=== PATIENT | male | born 1945 | race Caucasian/White ===

== ENCOUNTER 2018-05-23 21:25 | Inpatient (IN) | payer OTHER, MEDICARE ==
[~2018-05-23] VITALS: Ht 177.8 cm; Wt 95.0 kg
--- NOTE | 2018-05-23 21:36 | PHYS DOC ---
Adult General HPI HPI Patient is a 73 year old male who presents with cough and fever. He presents to the emergency department via EMS after he had an episode of coughing, loss of consciousness, subsequent seizure-like activity that was witnessed by his son , then vomiting. When he woke up he was slow to wake up and EMS noticed that he was febrile. He states that he has had a cough for the last 3 weeks which started to have yellow sputum over the last couple of days. He also has a history of prostatitis and states that he has had urinary frequency and dysuria that is worsening as well as a dull of pubic ache. Severe MRSA department alert and oriented 3, GCS 15, with no real pain or complaint, albeit stoic. He has a cervical collar in place that was cleared by me via Nexus criteria. Review of Systems Review of Systems All other systems were reviewed and found to be within normal limits, except as documented in this note. Family History Family History non contributory Current Medications Current Medications Current Medications Medications (Trade) Dose Ordered Sig/Harleen Start Time Stop Time Status Last Admin Dose Admin Acetaminophen (Tylenol) 1,000 mg 1X ONCE 05/23/18 22:00 05/23/18 22:01 DC 05/23/18 22:00 1,000 MG Piperacillin Sod/ Tazobactam Sod 3.375 gm/Sodium Chloride 50 ml @ 100 mls/hr 1X ONCE 05/23/18 21:45 05/23/18 22:14 DC 05/23/18 22:15 100 MLS/HR Sodium Chloride 1,000 ml @ 1,000 mls/hr 1X ONCE 05/23/18 22:15 05/23/18 23:14 DC 05/23/18 22:08 1,000 MLS/HR Allergies Allergies Allergies Coded Allergies Type Severity Reaction Last Updated Verified ciprofloxacin Allergy Unknown 05/23/18 Yes Physical Exam Physical Exam GENERAL: Awake, alert, nontoxic, no acute distress HEAD/NECK/EYES: Normocephalic,PERRL , trachea midline, no JVD, C-spine immobilized initially, no C-spine tenderness, no step-off, full range of motion without any pain or issue, supple ENT Airway patent, mucous membranes moist RESP: Nontachypneic, no respiratory distress, normal breath sounds bilaterally CV: Tachycardic without murmur ABD/GI: Soft, non-tender, no guarding, no rebound, no palpable pulsatile mass BACK: Inspection NL EXT: Neurovascularly intact, no deformities SKIN: Warm, dry NEURO: Oriented X3, normal speech, no motor deficits, no sensory deficits, CN II - XII intact PSYCH: Cooperative, appropriate affect Current Patient Data Vital Signs Vital Signs Date Time Temp Pulse Resp B/P (MAP) Pulse Ox O2 Delivery O2 Flow Rate FiO2 05/23/18 21:29 99.3 102 17 168/78 (108) Room Air 99.3 Lab Values Laboratory Tests Test 05/23/18 21:40 05/23/18 22:27 White Blood Count 14.6 x10^3/uL (4.0-11.0) H Red Blood Count 4.10 x10^6/uL (4.30-5.70) L Hemoglobin 13.3 g/dL (13.0-17.5) Hematocrit 38.2 % (39.0-53.0) L Mean Corpuscular Volume 93 fL (79-100) Mean Corpuscular Hemoglobin 33 pg (25-35) Mean Corpuscular Hemoglobin Concent 35 g/dL (31-37) Red Cell Distribution Width 13.9 % (11.5-14.5) Platelet Count 238 x10^3/uL (140-400) Neutrophils (%) (Auto) 87 % (31-73) H Lymphocytes (%) (Auto) 5 % (24-48) L Monocytes (%) (Auto) 8 % (0-9) Eosinophils (%) (Auto) 0 % (0-3) Basophils (%) (Auto) 0 % (0-3) Neutrophils # (Auto) 12.7 x10^3uL (1.8-7.7) H Lymphocytes # (Auto) 0.7 x10^3/uL (1.0-4.8) L Monocytes # (Auto) 1.2 x10^3/uL (0.0-1.1) H Eosinophils # (Auto) 0.0 x10^3/uL (0.0-0.7) Basophils # (Auto) 0.0 x10^3/uL (0.0-0.2) Platelet Estimate Pending Sodium Level 129 mmol/L (136-145) L Potassium Level 3.8 mmol/L (3.5-5.1) Chloride Level 98 mmol/L (98-107) Carbon Dioxide Level 21 mmol/L (21-32) Anion Gap 10 (6-14) Blood Urea Nitrogen 16 mg/dL (8-26) Creatinine 1.1 mg/dL (0.7-1.3) Estimated GFR (Cockcroft-Gault) 65.8 Glucose Level 146 mg/dL (70-99) H Lactic Acid Level 1.2 mmol/L (0.4-2.0) Calcium Level 8.5 mg/dL (8.5-10.1) Total Bilirubin 1.2 mg/dL (0.2-1.0) H Direct Bilirubin 0.4 mg/dL (0.0-0.2) H Aspartate Amino Transferase (AST) 28 U/L (15-37) Alanine Aminotransferase (ALT) 36 U/L (16-63) Alkaline Phosphatase 77 U/L (46-116) Total Protein 7.4 g/dL (6.4-8.2) Albumin 3.4 g/dL (3.4-5.0) Procalcitonin 0.16 ng/mL (0.00-0.10) H Urine Collection Type Unknown Urine Color Colette Urine Clarity Cloudy Urine pH 5.5 Urine Specific [place] 1.025 Urine Protein 100 mg/dL (NEG-TRACE) Urine Glucose (UA) Negative mg/dL (NEG) Urine Ketones (Stick) >=80 mg/dL (NEG) Urine Blood Moderate (NEG) Urine Nitrite Positive (NEG) Urine Bilirubin Negative (NEG) Urine Urobilinogen Dipstick 1.0 mg/dL (0.2 mg/dL) Urine Leukocyte Esterase Large (NEG) Urine RBC 3-5 /HPF (0-2) Urine WBC Tntc /HPF (0-4) Urine Squamous Epithelial Cells None /LPF Urine Bacteria Many /HPF (0-FEW) Urine Mucus Marked /LPF Laboratory Tests 05/23/18 21:40 Laboratory Tests 05/23/18 21:40 EKG EKG [] Radiology/Procedures Radiology/Procedures AP chest x-ray interpreted by me reveals bilateral atelectasis but no confluent infiltrates.[] Impressions: Urinary tract infection, sepsis, aspiration pneumonitis, syncope versus seizure Course & Med Decision Making Course & Med Decision Making Pertinent Labs and Imaging studies reviewed. (See chart for details) []Differential includes but not limited to: Sepsis, aspiration pneumonitis, aspiration pneumonia, prostatitis, urinary tract infection, pyelonephritis, metabolic abnormality, anemia, normocytic., Seizure, syncope, dysrhythmia, structural heart disease Dragon Disclaimer Dragon Disclaimer This electronic medical record was generated, in whole or in part, using a voice recognition dictation system. Departure Departure Impression: Primary Impression: Sepsis Additional Impressions: Syncope Seizure-like activity Aspiration pneumonitis Disposition: ADMITTED INPATIENT Admitting Physician: Other (Termulo) Condition: STABLE Problem Qualifiers MAXIMO MARIE DO May 23, 2018 21:36
[2018-05-23] MEDS ORDERED: PIPERACILLIN/TAZOBACTAM 3.375 GM in IV NORMAL SALINE 50ML 50 ML IV ONE (21:45)
[2018-05-23] MEDS ORDERED: ACETAMINOPHEN 500 MG TABLET PO ONE (22:00)
[2018-05-23 22:08] LABS: ALBUMIN 3.4 g/dL (3.4-5.0); DIRECT BILIRUBIN 0.4 mg/dL (0.0-0.2); TOTAL BILIRUBIN 1.2 mg/dL (0.2-1.0); TOTAL PROTEIN 7.4 g/dL (6.4-8.2)
[2018-05-23] MEDS ORDERED: IV NORMAL SALINE 1000ML BAG 1,000 ML IV ONE (22:15)
[2018-05-23 22:35] LABS: BILIRUBIN,URINE NEGATIVE (NEG); CLARITY,URINE CLOUDY; COLOR,URINE AMBER; NITRITE,URINE POSITIVE (NEG); PH,URINE 5.5; PROTEIN,URINE 100 mg/dL (NEG-TRACE)
--- NOTE | 2018-05-23 22:36 | RAD ---
PQRS Compliance statement: One or more of the following individualized dose reduction techniques were utilized for this examination: 1. Automated exposure control. 2. Adjustment of the mA and/or kV according to patient size. 3. Use of iterative reconstruction technique. Indication:weakness, syncope, fall, hit head, no priors TECHNIQUE: CT head without IV contrast COMPARISON:None FINDINGS: No pathologic extra-axial or intra-axial fluid collection. Mild diffuse cerebral atrophy. The ventricles and basal cisterns are within normal limits. No acute intracranial bleed. No focal loss of haskins-white differentiation. Orbits within normal limits. No acute calvarial fractures. Visualized paranasal sinuses and mastoid air cells are clear. IMPRESSION: No acute intracranial process. Electronically signed by: Flavio Haynes DO (05/23/2018 10:33 PM) [facility]
[2018-05-23 22:41] LABS: BACTERIA,URINE MANY /HPF (0-FEW); WBC,URINE TNTC /HPF (0-4)
[2018-05-23] MEDS ORDERED: ONDANSETRON PF 4 MG/2 ML VIAL. IV PRN (23:15)
[2018-05-23 23:29] LABS: BASO % 0 % (0-3); EOS % 0 % (0-3); HEMATOCRIT 38.2 % (39.0-53.0); HEMOGLOBIN 13.3 g/dL (13.0-17.5); LYMPH # 0.7 x10^3/uL (1.0-4.8); LYMPH % 5 % (24-48); MEAN CORPUSCULAR HEMOGLOBIN 33 pg (25-35); MEAN CORPUSCULAR HGB CONC 35 g/dL (31-37); MEAN CORPUSCULAR VOLUME 93 fL (79-100); MONO # 1.2 x10^3/uL (0.0-1.1); MONO % 8 % (0-9); NEUT # 12.7 x10^3uL (1.8-7.7); NEUT % 87 % (31-73); PLATELET COUNT 238 x10^3/uL (140-400); RED CELL DISTRIBUTION WIDTH 13.9 % (11.5-14.5); WHITE BLOOD COUNT 14.6 x10^3/uL (4.0-11.0)
--- NOTE | 2018-05-23 23:30 | RAD ---
Indication:sepsis cough aspiration pneumonitis TECHNIQUE:Portable AP chest X-ray COMPARISON:None FINDINGS: Heart is normal in size. Calcified granuloma is seen in the right midlung zone. Minimal bibasilar linear opacities likely subsegmental atelectasis. No focal consolidation. No pneumothorax or pleural effusion. Elevated right hemidiaphragm, nonspecific. Visualized bony thorax within normal limits. IMPRESSION: Mild bibasilar patchy opacities most likely subsegmental atelectasis. Electronically signed by: Flavio Haynes DO (05/23/2018 11:26 PM) [facility]
[2018-05-23 23:32] LABS: CALCIUM 8.5 mg/dL (8.5-10.1); CREATININE 1.1 mg/dL (0.7-1.3); GFR 65.8; POTASSIUM 3.8 mmol/L (3.5-5.1)
[2018-05-24] VITALS (8 sets, daily range): BP systolic 106–143; BP diastolic 48–73
[2018-05-24] MEDS: IV NORMAL SALINE 1000ML BAG 1,000 ML IV SCH ×2 (00:41→10:30)
[2018-05-24] MEDS ORDERED: DIPH25CA58 PO (01:31)
[2018-05-24] MEDS ORDERED: ASPI81TA59 PO (01:31)
[2018-05-24] MEDS ORDERED: LORA10TA3 PO (01:31)
[2018-05-24] MEDS ORDERED: TAMS0.4C97 PO (01:31)
[2018-05-24] MEDS ORDERED: DOCU-109 PO (01:31)
[2018-05-24 04:59] LABS: BASO % 0 % (0-3); EOS % 0 % (0-3); HEMATOCRIT 37.8 % (39.0-53.0); HEMOGLOBIN 13.2 g/dL (13.0-17.5); LYMPH # 1.1 x10^3/uL (1.0-4.8); LYMPH % 8 % (24-48); MEAN CORPUSCULAR HEMOGLOBIN 33 pg (25-35); MEAN CORPUSCULAR HGB CONC 35 g/dL (31-37); MEAN CORPUSCULAR VOLUME 95 fL (79-100); MONO % 7 % (0-9); NEUT # 11.8 x10^3uL (1.8-7.7); NEUT % 85 % (31-73); PLATELET COUNT 209 x10^3/uL (140-400); RED BLOOD COUNT 3.99 x10^6/uL (4.30-5.70); RED CELL DISTRIBUTION WIDTH 14.3 % (11.5-14.5)
[2018-05-24 05:07] LABS: % LYMPHS 10 % (24-48); % MONOS 12 % (0-10); % SEGS 78 % (35-66)
[2018-05-24 05:08] LABS: PLT ESTIMATE ADEQUATE (ADEQUATE)
[2018-05-24 05:21] LABS: CALCIUM 8.4 mg/dL (8.5-10.1); CREATININE 1.3 mg/dL (0.7-1.3); GFR 54.3; POTASSIUM 3.8 mmol/L (3.5-5.1)
[2018-05-24] MEDS: IPRATRPIUM/ALBUTEROL 0.5/2.5MG 3 ML NEBU. NEB SCH ×4 (07:31→19:40)
[2018-05-24] MEDS ORDERED: guaiFENesin DM 200MG/20MG 10 ML SYRUP PO PRN (09:00)
[2018-05-24] MEDS ORDERED: ACETAMINOPHEN/CODEINE 300/30MG TABLET. PO PRN (09:00)
[2018-05-24] MEDS ORDERED: ONDANSETRON PF 4 MG/2 ML VIAL. IV PRN (09:15)
[2018-05-24] MEDS: CETIRIZINE HCL 10 MG TABLET. PO SCH (10:31)
[2018-05-24] MEDS: TAMSULOSIN 0.4 MG CAP.ER.24H. PO SCH (10:31)
[2018-05-24] MEDS: BENZONATATE 100 MG CAPSULE. PO SCH ×3 (10:31→21:00)
[2018-05-24] MEDS: diphenhydrAMINE HCL 25 MG CAPSULE PO SCH (10:31)
[2018-05-24] MEDS: DOCUSATE SODIUM 100 MG CAPSULE. PO SCH ×2 (10:32→21:01)
--- NOTE | 2018-05-24 10:42 | PDOC1 ---
History and Physical Date of Admission Date of Admission DATE: 05/24/18 TIME: 10:36 Identification/Chief Complaint Chief Complaint fall, LOC Source Source: Caregiver, Chart review, Patient History of Present Illness History of Present Illness 73-year-old very pleasant male, lives at home with son, good ADLs and IADLs, does not need any assistive device for ambulation, was preparing noodles for dinner last night, he suddenly syncopized. NO prodrome, no CP< no tunnel vision, no identifiable precipitating factor,. NO SZ like movement or bowel or bladder incontinence, He thought he may might have been out for 5 minutes. Next thing he sees was his son waking him up and EMS arriving. No reports of arrhythmia by EMT. Happened in the past before, some 6 years ago? When they lived in [place], went [facility], saw exploration driller, stress test done maybe an echo. Seems okay and no follow-up needed. He also actually has some incidental UTI. Admits to some dysuria, pelvic pressure. Will try Pyridium. History of prostatitis and BPH, with very bad side effects to Cipro but good with bactrim/sulfa so far. He is asking for sulfa. He does have history of LBBB. Unknown exploration driller at [facility] in the past. We'll admit, have urology, start. abx for the UTI, consult cardiology re syncope. We' ll hook to telemetry. Current IVF to consume. Rest of the labs chest x-ray CT head are all unremarkable. Past Medical History Cardiovascular: HTN, Syncope Renal/: Benign prostatic enlarg., Other (prostatitis) Past Surgical History Past Surgical History: No pertinent history Family History Family History: No Significant Social History Smoke: No ALCOHOL: none Drugs: None Current Problem List Problem List Problems Medical Problems: (1) Aspiration pneumonitis Status: Acute (2) Seizure-like activity Status: Acute (3) Sepsis Status: Acute Current Medications Current Medications Current Medications Piperacillin Sod/ Tazobactam Sod 3.375 gm/Sodium Chloride 50 ml @ 100 mls/hr 1X ONCE IV Last administered on 05/23/18at 22:15; Start 05/23/18 at 21:45; Stop 05/23/18 at 22:14; Status DC Acetaminophen (Tylenol) 1,000 mg 1X ONCE PO Last administered on 05/23/18at 22: 00; Start 05/23/18 at 22:00; Stop 05/23/18 at 22:01; Status DC Sodium Chloride 1,000 ml @ 1,000 mls/hr 1X ONCE IV Last administered on at 22:08; Start 05/23/18 at 22:15; Stop 05/23/18 at 23:14; Status DC Ondansetron HCl (Zofran) 4 mg PRN Q8HRS PRN IV NAUSEA/VOMITING; Start 05/23/18 at 23:15; Stop 05/24/18 at 09:01; Status DC Sodium Chloride 1,000 ml @ 100 mls/hr Q10H IV Last administered on 05/24/18at 10:30; Start 05/23/18 at 23:15; Stop 05/24/18 at 23:14 Albuterol/ Ipratropium (Duoneb) 3 ml RTQID NEB Last administered on 05/24/18at 07:31; Start 05/24/18 at 08:00; Stop 05/25/18 at 07:59 Ondansetron HCl (Zofran) 4 mg PRN Q6HRS PRN IV NAUSEA/VOMITING; Start 05/24/18 at 09:15 Acetaminophen (Tylenol) 500 mg PRN Q6HRS PRN PO MILD PAIN / TEMP; Start at 09:00 Acetaminophen/ Codeine Phosphate (Tylenol #3) 1 tab PRN Q6HRS PRN PO MODERATE - SEVERE PAIN; Start 05/24/18 at 09:00 Benzonatate (Tessalon Perle) 100 mg [id number] PO Last administered on 05/24/18at 10 :31; Start 05/24/18 at 09:30 Guaifenesin (Robitussin Dm) 10 ml PRN Q6HRS PRN PO COUGH; Start 05/24/18 at 09: 00 Aspirin (Children'S Aspirin) 81 mg DAILY PO ; Start 05/25/18 at 09:30 Diphenhydramine HCl (Benadryl) 25 mg DAILY PO Last administered on 05/24/18at 10 :31; Start 05/24/18 at 09:30 Docusate Sodium (Colace) 100 mg BID PO Last administered on 05/24/18at 10:32; Start 05/24/18 at 09:30 Tamsulosin HCl (Flomax) 0.4 mg DAILY PO Last administered on 05/24/18at 10:31; Start 05/24/18 at 09:30 Cetirizine HCl (ZyrTEC) 10 mg DAILY PO Last administered on 05/24/18at 10:31; Start 05/24/18 at 09:30 Active Scripts Active Reported Benadryl (Diphenhydramine Hcl) 25 Mg Capsule 25 Mg PO DAILY Loratadine 10 Mg Tablet 1 Tab PO DAILY Colace (Docusate Sodium) 100 Mg Capsule 1 Cap PO BID Flomax (Tamsulosin Hcl) 0.4 Mg Cap.er.24h 1 Cap PO DAILY Children's Aspirin (Aspirin) 81 Mg Tab.chew 81 Mg PO DAILY Allergies Allergies: Coded Allergies: ciprofloxacin (Verified Allergy, Unknown, 05/23/18) ROS Review of System as per history of present illness, the rest of ROS 14 point negative Physical Exam General: Alert, Oriented X3, Cooperative, No acute distress HEENT: Atraumatic, PERRLA, EOMI Lungs: Clear to auscultation, Normal air movement Heart: S1S2, RRR, no thrills, no rubs, no gallops, no murmurs Cardiovascular: S1, S2 Abdomen: Soft, Other (tenderness/pelvic pressure on deep palpation no guarding) Male Genitals Exam: normal genitalia, normal prostate Rectal Exam: not examined PELVIC: Nml ext genitalia Extremities: No clubbing, No cyanosis, No edema, Normal pulses, No tenderness/ swelling Skin: No rashes, No breakdown, No significant lesion Neuro: Normal gait, Normal speech, Strength at 5/5 X4 ext, Normal tone, Sensation intact, Cranial nerves 3-12 NL, Reflexes 2+ Psych/Mental Status: Mental status NL, Mood NL Vitals Vitals Vital Signs Date Time Temp Pulse Resp B/P (MAP) Pulse Ox O2 Delivery O2 Flow Rate FiO2 05/24/18 07:32 93 Room Air 05/24/18 07:00 99.4 93 16 106/48 (67) 99.4 Labs Labs Laboratory Tests Test 05/23/18 21:40 05/23/18 22:27 05/24/18 03:25 White Blood Count 14.6 x10^3/uL (4.0-11.0) 14.0 x10^3/uL (4.0-11.0) Red Blood Count 4.10 x10^6/uL (4.30-5.70) 3.99 x10^6/uL (4.30-5.70) Hemoglobin 13.3 g/dL (13.0-17.5) 13.2 g/dL (13.0-17.5) Hematocrit 38.2 % (39.0-53.0) 37.8 % (39.0-53.0) Mean Corpuscular Volume 93 fL (79-100) 95 fL (79-100) Mean Corpuscular Hemoglobin 33 pg (25-35) 33 pg (25-35) Mean Corpuscular Hemoglobin Concent 35 g/dL (31-37) 35 g/dL (31-37) Red Cell Distribution Width 13.9 % (11.5-14.5) 14.3 % (11.5-14.5) Platelet Count 238 x10^3/uL (140-400) 209 x10^3/uL (140-400) Neutrophils (%) (Auto) 87 % (31-73) 85 % (31-73) Lymphocytes (%) (Auto) 5 % (24-48) 8 % (24-48) Monocytes (%) (Auto) 8 % (0-9) 7 % (0-9) Eosinophils (%) (Auto) 0 % (0-3) 0 % (0-3) Basophils (%) (Auto) 0 % (0-3) 0 % (0-3) Neutrophils # (Auto) 12.7 x10^3uL (1.8-7.7) 11.8 x10^3uL (1.8-7.7) Lymphocytes # (Auto) 0.7 x10^3/uL (1.0-4.8) 1.1 x10^3/uL (1.0-4.8) Monocytes # (Auto) 1.2 x10^3/uL (0.0-1.1) 1.0 x10^3/uL (0.0-1.1) Eosinophils # (Auto) 0.0 x10^3/uL (0.0-0.7) 0.0 x10^3/uL (0.0-0.7) Basophils # (Auto) 0.0 x10^3/uL (0.0-0.2) 0.0 x10^3/uL (0.0-0.2) Segmented Neutrophils % 78 % (35-66) Lymphocytes % 10 % (24-48) Monocytes % 12 % (0-10) Platelet Estimate Adequate (ADEQUATE) Sodium Level 129 mmol/L (136-145) 137 mmol/L (136-145) Potassium Level 3.8 mmol/L (3.5-5.1) 3.8 mmol/L (3.5-5.1) Chloride Level 98 mmol/L (98-107) 103 mmol/L (98-107) Carbon Dioxide Level 21 mmol/L (21-32) 23 mmol/L (21-32) Anion Gap 10 (6-14) 11 (6-14) Blood Urea Nitrogen 16 mg/dL (8-26) 14 mg/dL (8-26) Creatinine 1.1 mg/dL (0.7-1.3) 1.3 mg/dL (0.7-1.3) Estimated GFR (Cockcroft-Gault) 65.8 54.3 Glucose Level 146 mg/dL (70-99) 148 mg/dL (70-99) Lactic Acid Level 1.2 mmol/L (0.4-2.0) Calcium Level 8.5 mg/dL (8.5-10.1) 8.4 mg/dL (8.5-10.1) Total Bilirubin 1.2 mg/dL (0.2-1.0) Direct Bilirubin 0.4 mg/dL (0.0-0.2) Aspartate Amino Transf (AST/SGOT) 28 U/L (15-37) Alanine Aminotransferase (ALT/SGPT) 36 U/L (16-63) Alkaline Phosphatase 77 U/L (46-116) Total Protein 7.4 g/dL (6.4-8.2) Albumin 3.4 g/dL (3.4-5.0) Procalcitonin 0.16 ng/mL (0.00-0.10) Urine Collection Type Unknown Urine Color Colette Urine Clarity Cloudy Urine pH 5.5 Urine Specific [place] 1.025 Urine Protein 100 mg/dL (NEG-TRACE) Urine Glucose (UA) Negative mg/dL (NEG) Urine Ketones (Stick) >=80 mg/dL (NEG) Urine Blood Moderate (NEG) Urine Nitrite Positive (NEG) Urine Bilirubin Negative (NEG) Urine Urobilinogen Dipstick 1.0 mg/dL (0.2 mg/dL) Urine Leukocyte Esterase Large (NEG) Urine RBC 3-5 /HPF (0-2) Urine WBC Tntc /HPF (0-4) Urine Squamous Epithelial Cells None /LPF Urine Bacteria Many /HPF (0-FEW) Urine Mucus Marked /LPF Laboratory Tests Test 05/23/18 21:40 05/23/18 22:27 05/24/18 03:25 White Blood Count 14.6 x10^3/uL (4.0-11.0) 14.0 x10^3/uL (4.0-11.0) Red Blood Count 4.10 x10^6/uL (4.30-5.70) 3.99 x10^6/uL (4.30-5.70) Hemoglobin 13.3 g/dL (13.0-17.5) 13.2 g/dL (13.0-17.5) Hematocrit 38.2 % (39.0-53.0) 37.8 % (39.0-53.0) Mean Corpuscular Volume 93 fL (79-100) 95 fL (79-100) Mean Corpuscular Hemoglobin 33 pg (25-35) 33 pg (25-35) Mean Corpuscular Hemoglobin Concent 35 g/dL (31-37) 35 g/dL (31-37) Red Cell Distribution Width 13.9 % (11.5-14.5) 14.3 % (11.5-14.5) Platelet Count 238 x10^3/uL (140-400) 209 x10^3/uL (140-400) Neutrophils (%) (Auto) 87 % (31-73) 85 % (31-73) Lymphocytes (%) (Auto) 5 % (24-48) 8 % (24-48) Monocytes (%) (Auto) 8 % (0-9) 7 % (0-9) Eosinophils (%) (Auto) 0 % (0-3) 0 % (0-3) Basophils (%) (Auto) 0 % (0-3) 0 % (0-3) Neutrophils # (Auto) 12.7 x10^3uL (1.8-7.7) 11.8 x10^3uL (1.8-7.7) Lymphocytes # (Auto) 0.7 x10^3/uL (1.0-4.8) 1.1 x10^3/uL (1.0-4.8) Monocytes # (Auto) 1.2 x10^3/uL (0.0-1.1) 1.0 x10^3/uL (0.0-1.1) Eosinophils # (Auto) 0.0 x10^3/uL (0.0-0.7) 0.0 x10^3/uL (0.0-0.7) Basophils # (Auto) 0.0 x10^3/uL (0.0-0.2) 0.0 x10^3/uL (0.0-0.2) Segmented Neutrophils % 78 % (35-66) Lymphocytes % 10 % (24-48) Monocytes % 12 % (0-10) Platelet Estimate Adequate (ADEQUATE) Sodium Level 129 mmol/L (136-145) 137 mmol/L (136-145) Potassium Level 3.8 mmol/L (3.5-5.1) 3.8 mmol/L (3.5-5.1) Chloride Level 98 mmol/L (98-107) 103 mmol/L (98-107) Carbon Dioxide Level 21 mmol/L (21-32) 23 mmol/L (21-32) Anion Gap 10 (6-14) 11 (6-14) Blood Urea Nitrogen 16 mg/dL (8-26) 14 mg/dL (8-26) Creatinine 1.1 mg/dL (0.7-1.3) 1.3 mg/dL (0.7-1.3) Estimated GFR (Cockcroft-Gault) 65.8 54.3 Glucose Level 146 mg/dL (70-99) 148 mg/dL (70-99) Lactic Acid Level 1.2 mmol/L (0.4-2.0) Calcium Level 8.5 mg/dL (8.5-10.1) 8.4 mg/dL (8.5-10.1) Total Bilirubin 1.2 mg/dL (0.2-1.0) Direct Bilirubin 0.4 mg/dL (0.0-0.2) Aspartate Amino Transf (AST/SGOT) 28 U/L (15-37) Alanine Aminotransferase (ALT/SGPT) 36 U/L (16-63) Alkaline Phosphatase 77 U/L (46-116) Total Protein 7.4 g/dL (6.4-8.2) Albumin 3.4 g/dL (3.4-5.0) Procalcitonin 0.16 ng/mL (0.00-0.10) Urine Collection Type Unknown Urine Color Colette Urine Clarity Cloudy Urine pH 5.5 Urine Specific [place] 1.025 Urine Protein 100 mg/dL (NEG-TRACE) Urine Glucose (UA) Negative mg/dL (NEG) Urine Ketones (Stick) >=80 mg/dL (NEG) Urine Blood Moderate (NEG) Urine Nitrite Positive (NEG) Urine Bilirubin Negative (NEG) Urine Urobilinogen Dipstick 1.0 mg/dL (0.2 mg/dL) Urine Leukocyte Esterase Large (NEG) Urine RBC 3-5 /HPF (0-2) Urine WBC Tntc /HPF (0-4) Urine Squamous Epithelial Cells None /LPF Urine Bacteria Many /HPF (0-FEW) Urine Mucus Marked /LPF VTE Prophylaxis Ordered VTE Prophylaxis Devices: Yes VTE Pharmacological Prophylaxi: Yes Assessment/Plan Assessment/Plan UTI in a male Syncope rule out arrhythmia/cardiac in etiology - 2nd episode History of LBBB History of prostatitis Cipro allergy Dysuria Plan: Hook to telemetry Consult cardiology Consult urology per pt request Bactrim PO Current IVF to consume Home meds have been reconciled Trial of Pyridium Continue home Flomax HÉCTOR ENG MD May 24, 2018 10:42
[2018-05-24] MEDS: SMZ/TMP 800/160MG TABLET. PO SCH ×2 (10:57→21:01)
--- NOTE | 2018-05-24 12:37 | PDOC2 ---
UROLOGY CONSULT Date of Consult Date of Consult DATE: 05/24/18 TIME: 12:32 Source Source: Caregiver, Chart review, Patient History of Present Illness Reason for Visit: Patient is a 73 year old male who presented to the ER on after he had an episode of coughing, loss of consciousness, subsequent seizure-like activity that was witnessed by his son, then vomiting. He is receiving treatment for these conditions currently. Urology was consulted due to his reports of prostatitis and states that he has had urinary frequency and dysuria that is worsening as well as a dull pubic ache. He has had prostatitis a total of four times. His last episode of prostatitis was six years ago for which he received antibiotic treatment. He doesn't remember the name of the last antibiotic they treated him with, but he does remember that cipro does not work for him. He feels a little better since they started antibiotics on him today. His last prostate exam was about a year ago at his PCP's office; he does not remember his last PSA, although he is pretty sure one was drawn. He is still having dysuria, but this is improved also, along with the sensation of incomplete emptying. He did see some blood without clots in his urine on and off over the last few days, but none today. He denies prostate cancer or kidney problems to his knowledge. Past Medical History Cardiovascular: HTN, Syncope Renal/: Benign prostatic enlarg., Other (prostatitis) Past Surgical History Past Surgical History: No pertinent history Family History Family History: No Significant Social History No ALCOHOL: none Drugs: None Current Problem List Problems: (1) BPH (benign prostatic hyperplasia) (2) UTI (urinary tract infection) Current Medications Current Medications Current Medications Acetaminophen (Tylenol) 500 mg PRN Q6HRS PRN PO MILD PAIN / TEMP; Start at 09:00 Acetaminophen (Tylenol) 1,000 mg 1X ONCE PO Last administered on 05/23/18at 22: 00; Start 05/23/18 at 22:00; Stop 05/23/18 at 22:01; Status DC Acetaminophen/ Codeine Phosphate (Tylenol #3) 1 tab PRN Q6HRS PRN PO MODERATE - SEVERE PAIN; Start 05/24/18 at 09:00 Albuterol/ Ipratropium (Duoneb) 3 ml RTQID NEB Last administered on 05/24/18at 07:31; Start 05/24/18 at 08:00; Stop 05/25/18 at 07:59 Aspirin (Children'S Aspirin) 81 mg DAILY PO ; Start 05/25/18 at 09:30 Benzonatate (Tessalon Perle) 100 mg [id number] PO Last administered on 05/24/18at 10 :31; Start 05/24/18 at 09:30 Cetirizine HCl (ZyrTEC) 10 mg DAILY PO Last administered on 05/24/18at 10:31; Start 05/24/18 at 09:30 Diphenhydramine HCl (Benadryl) 25 mg DAILY PO Last administered on 05/24/18at 10 :31; Start 05/24/18 at 09:30 Docusate Sodium (Colace) 100 mg BID PO Last administered on 05/24/18at 10:32; Start 05/24/18 at 09:30 Guaifenesin (Robitussin Dm) 10 ml PRN Q6HRS PRN PO COUGH; Start 05/24/18 at 09: 00 Ondansetron HCl (Zofran) 4 mg PRN Q6HRS PRN IV NAUSEA/VOMITING; Start 05/24/18 at 09:15 Ondansetron HCl (Zofran) 4 mg PRN Q8HRS PRN IV NAUSEA/VOMITING; Start 05/23/18 at 23:15; Stop 05/24/18 at 09:01; Status DC Phenazopyridine HCl (Pyridium) 200 mg TID PO ; Start 05/24/18 at 15:00 Piperacillin Sod/ Tazobactam Sod 3.375 gm/Sodium Chloride 50 ml @ 100 mls/hr 1X ONCE IV Last administered on 05/23/18at 22:15; Start 05/23/18 at 21:45; Stop 05/23/18 at 22:14; Status DC Sodium Chloride 1,000 ml @ 100 mls/hr Q10H IV Last administered on 05/24/18at 10:30; Start 05/23/18 at 23:15; Stop 05/24/18 at 10:36; Status DC Sodium Chloride 1,000 ml @ 1,000 mls/hr 1X ONCE IV Last administered on at 22:08; Start 05/23/18 at 22:15; Stop 05/23/18 at 23:14; Status DC Tamsulosin HCl (Flomax) 0.4 mg DAILY PO Last administered on 05/24/18at 10:31; Start 05/24/18 at 09:30 Trimethoprim/ Sulfamethoxazole (Bactrim Ds) 1 tab BID PO Last administered on at 10:57; Start 05/24/18 at 10:45 Allergies Allergies: Coded Allergies: ciprofloxacin (Verified Allergy, Unknown, 05/23/18) ROS Review Of Systems: CONSTITUTIONAL: No fever or chills EYES: No recent changes SKIN: No rash or itching CARDIOVASCULAR: No chest pain, syncope, palpitations, or edema RESPIRATORY: + cough GASTROINTESTINAL: No nausea, vomiting or abdominal pain NEUROLOGICAL: No headaches or weakness ENDOCRINE: No cold or heat intolerance GENITOURINARY: + urgency or frequency of urination, prostatitis MUSCULOSKELETAL: No back pain or joint pain LYMPHATICS: No enlarged lymph nodes PSYCHIATRIC: No anxiety or depression Physical Exam Physical Exam: General: Pleasant, no acute distress, well groomed Eyes: conjunctiva anicteric, eyes full range of motion ENT: moist oral mucosa, normal dentition Neck: Trachea midline, no masses ABD: non tender, soft. Respiratory: unlabored breathing, not using accessory muscles, TAWANA: unable to complete, as patient is very very tender on exam. Prostate does feel enlarged, but am unable to estimate size at this time. Vitals VITALS Vital Signs Date Time Temp Pulse Resp B/P (MAP) Pulse Ox O2 Delivery O2 Flow Rate FiO2 05/24/18 11:00 98.8 90 16 119/70 (86) 93 Room Air 98.8 Labs Labs Laboratory Tests Test 05/23/18 21:40 05/23/18 22:27 05/24/18 03:25 White Blood Count 14.6 x10^3/uL (4.0-11.0) 14.0 x10^3/uL (4.0-11.0) Red Blood Count 4.10 x10^6/uL (4.30-5.70) 3.99 x10^6/uL (4.30-5.70) Hemoglobin 13.3 g/dL (13.0-17.5) 13.2 g/dL (13.0-17.5) Hematocrit 38.2 % (39.0-53.0) 37.8 % (39.0-53.0) Mean Corpuscular Volume 93 fL (79-100) 95 fL (79-100) Mean Corpuscular Hemoglobin 33 pg (25-35) 33 pg (25-35) Mean Corpuscular Hemoglobin Concent 35 g/dL (31-37) 35 g/dL (31-37) Red Cell Distribution Width 13.9 % (11.5-14.5) 14.3 % (11.5-14.5) Platelet Count 238 x10^3/uL (140-400) 209 x10^3/uL (140-400) Neutrophils (%) (Auto) 87 % (31-73) 85 % (31-73) Lymphocytes (%) (Auto) 5 % (24-48) 8 % (24-48) Monocytes (%) (Auto) 8 % (0-9) 7 % (0-9) Eosinophils (%) (Auto) 0 % (0-3) 0 % (0-3) Basophils (%) (Auto) 0 % (0-3) 0 % (0-3) Neutrophils # (Auto) 12.7 x10^3uL (1.8-7.7) 11.8 x10^3uL (1.8-7.7) Lymphocytes # (Auto) 0.7 x10^3/uL (1.0-4.8) 1.1 x10^3/uL (1.0-4.8) Monocytes # (Auto) 1.2 x10^3/uL (0.0-1.1) 1.0 x10^3/uL (0.0-1.1) Eosinophils # (Auto) 0.0 x10^3/uL (0.0-0.7) 0.0 x10^3/uL (0.0-0.7) Basophils # (Auto) 0.0 x10^3/uL (0.0-0.2) 0.0 x10^3/uL (0.0-0.2) Segmented Neutrophils % 78 % (35-66) Lymphocytes % 10 % (24-48) Monocytes % 12 % (0-10) Platelet Estimate Adequate (ADEQUATE) Sodium Level 129 mmol/L (136-145) 137 mmol/L (136-145) Potassium Level 3.8 mmol/L (3.5-5.1) 3.8 mmol/L (3.5-5.1) Chloride Level 98 mmol/L (98-107) 103 mmol/L (98-107) Carbon Dioxide Level 21 mmol/L (21-32) 23 mmol/L (21-32) Anion Gap 10 (6-14) 11 (6-14) Blood Urea Nitrogen 16 mg/dL (8-26) 14 mg/dL (8-26) Creatinine 1.1 mg/dL (0.7-1.3) 1.3 mg/dL (0.7-1.3) Estimated GFR (Cockcroft-Gault) 65.8 54.3 Glucose Level 146 mg/dL (70-99) 148 mg/dL (70-99) Lactic Acid Level 1.2 mmol/L (0.4-2.0) Calcium Level 8.5 mg/dL (8.5-10.1) 8.4 mg/dL (8.5-10.1) Total Bilirubin 1.2 mg/dL (0.2-1.0) Direct Bilirubin 0.4 mg/dL (0.0-0.2) Aspartate Amino Transf (AST/SGOT) 28 U/L (15-37) Alanine Aminotransferase (ALT/SGPT) 36 U/L (16-63) Alkaline Phosphatase 77 U/L (46-116) Total Protein 7.4 g/dL (6.4-8.2) Albumin 3.4 g/dL (3.4-5.0) Procalcitonin 0.16 ng/mL (0.00-0.10) Urine Collection Type Unknown Urine Color Colette Urine Clarity Cloudy Urine pH 5.5 Urine Specific [place] 1.025 Urine Protein 100 mg/dL (NEG-TRACE) Urine Glucose (UA) Negative mg/dL (NEG) Urine Ketones (Stick) >=80 mg/dL (NEG) Urine Blood Moderate (NEG) Urine Nitrite Positive (NEG) Urine Bilirubin Negative (NEG) Urine Urobilinogen Dipstick 1.0 mg/dL (0.2 mg/dL) Urine Leukocyte Esterase Large (NEG) Urine RBC 3-5 /HPF (0-2) Urine WBC Tntc /HPF (0-4) Urine Squamous Epithelial Cells None /LPF Urine Bacteria Many /HPF (0-FEW) Urine Mucus Marked /LPF Magnesium Level 2.4 mg/dL (1.8-2.4) Laboratory Tests Test 05/23/18 21:40 05/23/18 22:27 05/24/18 03:25 White Blood Count 14.6 x10^3/uL (4.0-11.0) 14.0 x10^3/uL (4.0-11.0) Red Blood Count 4.10 x10^6/uL (4.30-5.70) 3.99 x10^6/uL (4.30-5.70) Hemoglobin 13.3 g/dL (13.0-17.5) 13.2 g/dL (13.0-17.5) Hematocrit 38.2 % (39.0-53.0) 37.8 % (39.0-53.0) Mean Corpuscular Volume 93 fL (79-100) 95 fL (79-100) Mean Corpuscular Hemoglobin 33 pg (25-35) 33 pg (25-35) Mean Corpuscular Hemoglobin Concent 35 g/dL (31-37) 35 g/dL (31-37) Red Cell Distribution Width 13.9 % (11.5-14.5) 14.3 % (11.5-14.5) Platelet Count 238 x10^3/uL (140-400) 209 x10^3/uL (140-400) Neutrophils (%) (Auto) 87 % (31-73) 85 % (31-73) Lymphocytes (%) (Auto) 5 % (24-48) 8 % (24-48) Monocytes (%) (Auto) 8 % (0-9) 7 % (0-9) Eosinophils (%) (Auto) 0 % (0-3) 0 % (0-3) Basophils (%) (Auto) 0 % (0-3) 0 % (0-3) Neutrophils # (Auto) 12.7 x10^3uL (1.8-7.7) 11.8 x10^3uL (1.8-7.7) Lymphocytes # (Auto) 0.7 x10^3/uL (1.0-4.8) 1.1 x10^3/uL (1.0-4.8) Monocytes # (Auto) 1.2 x10^3/uL (0.0-1.1) 1.0 x10^3/uL (0.0-1.1) Eosinophils # (Auto) 0.0 x10^3/uL (0.0-0.7) 0.0 x10^3/uL (0.0-0.7) Basophils # (Auto) 0.0 x10^3/uL (0.0-0.2) 0.0 x10^3/uL (0.0-0.2) Segmented Neutrophils % 78 % (35-66) Lymphocytes % 10 % (24-48) Monocytes % 12 % (0-10) Platelet Estimate Adequate (ADEQUATE) Sodium Level 129 mmol/L (136-145) 137 mmol/L (136-145) Potassium Level 3.8 mmol/L (3.5-5.1) 3.8 mmol/L (3.5-5.1) Chloride Level 98 mmol/L (98-107) 103 mmol/L (98-107) Carbon Dioxide Level 21 mmol/L (21-32) 23 mmol/L (21-32) Anion Gap 10 (6-14) 11 (6-14) Blood Urea Nitrogen 16 mg/dL (8-26) 14 mg/dL (8-26) Creatinine 1.1 mg/dL (0.7-1.3) 1.3 mg/dL (0.7-1.3) Estimated GFR (Cockcroft-Gault) 65.8 54.3 Glucose Level 146 mg/dL (70-99) 148 mg/dL (70-99) Lactic Acid Level 1.2 mmol/L (0.4-2.0) Calcium Level 8.5 mg/dL (8.5-10.1) 8.4 mg/dL (8.5-10.1) Total Bilirubin 1.2 mg/dL (0.2-1.0) Direct Bilirubin 0.4 mg/dL (0.0-0.2) Aspartate Amino Transf (AST/SGOT) 28 U/L (15-37) Alanine Aminotransferase (ALT/SGPT) 36 U/L (16-63) Alkaline Phosphatase 77 U/L (46-116) Total Protein 7.4 g/dL (6.4-8.2) Albumin 3.4 g/dL (3.4-5.0) Procalcitonin 0.16 ng/mL (0.00-0.10) Urine Collection Type Unknown Urine Color Colette Urine Clarity Cloudy Urine pH 5.5 Urine Specific [place] 1.025 Urine Protein 100 mg/dL (NEG-TRACE) Urine Glucose (UA) Negative mg/dL (NEG) Urine Ketones (Stick) >=80 mg/dL (NEG) Urine Blood Moderate (NEG) Urine Nitrite Positive (NEG) Urine Bilirubin Negative (NEG) Urine Urobilinogen Dipstick 1.0 mg/dL (0.2 mg/dL) Urine Leukocyte Esterase Large (NEG) Urine RBC 3-5 /HPF (0-2) Urine WBC Tntc /HPF (0-4) Urine Squamous Epithelial Cells None /LPF Urine Bacteria Many /HPF (0-FEW) Urine Mucus Marked /LPF Magnesium Level 2.4 mg/dL (1.8-2.4) Assessment/Plan Assessment/Plan TAWANA: unable to complete, as patient is very very tender on exam. Prostate does feel enlarged, but am unable to estimate size at this time. Pt on Bactrim for antibiotics, agree. He will need a total of six weeks of antibiotics and then follow up with a Urologist for prostate exam, may do cysto at that time for hematuria. Bladder scan today shows PVR of 104, no need for catheterization. Continue flomax. This should improve with time and antibiotic treatment. No need for serial bladder scans, but nursing staff may bladder scan PRN patient complaint/ suspected retention. Hematuria-most likely related to prostatitis, infection. 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 Will get CTU when normalized. Discussed case with DR. Hammond who will check on patient later today. FELY KNIGHT TEAM AUTOMOBILE ASSEMBLER May 24, 2018 12:37
--- NOTE | 2018-05-24 13:30 | PDOC2 ---
ISMAEL CENTENO MANUFACTURER AGENT 05/24/18 1330: CARDIAC CONSULT DATE OF CONSULT Date of Consult DATE: 05/24/18 TIME: 13:21 REASON FOR CONSULT Reason for Consult: syncope REFERRING PHYSICIAN Referring Physician: Joseluis SOURCE Source: Chart review, Patient HISTORY OF PRESENT ILLNESS HISTORY OF PRESENT ILLNESS This is a pleasant 73 yo male admitted for complains of weakness, passing out and bladder fullness. Reports that he started having bladder fullness Tuesday and has increasingly getting weak and just has no energy. He has not been drinking that much fluids and has been having some chills but no recorded fever. No prior CP or SOA or palpitations prior to this event. He actually has had stress test summer with known LBBB and follows with [facility] cardiology but never had a outpt heart monitor. He had the same episode 6 yrs ago when he had his prostatitis which has again this time. He passed out while e was in the kitchen, feeling flushed and hot at first and felt weak then he passed out. No visual or auditory disturbances nor GE. Dickens diaphoretic. He was on the floor with no apparent injury and his son told him that he was hot. No notation of duration for lost of consciousness. No hx of arrhythmias, CAD, CVA or seizures. No recent falls or injury. PAST MEDICAL HISTORY Cardiovascular: HTN (borderline), Syncope Pulmonary: No pertinent hx, Bronchitis, Other (PATRICK cpap noncompliant) CENTRAL NERVOUS SYSTEM: Other (No pertinent history) GI: No pertinent hx Heme/Onc: No pertinent hx Hepatobiliary: No pertinent hx Psych: Depression Musculoskeletal: Osteoarthritis Rheumatologic: No pertinent hx Infectious disease: No pertinent hx ENT: No pertinent hx, Allergic Rhinitis Renal/: No pertinent hx, Benign prostatic enlarg. Endocrine: No pertinent hx Dermatology: No pertinent hx PAST SURGICAL HISTORY Past Surgical History: Other (oral root canals) FAMILY HISTORY Family History: Stroke (mother) SOCIAL HISTORY Smoke: No ALCOHOL: none Drugs: None Lives: Alone CURRENT MEDICATIONS CURRENT MEDICATIONS Current Medications Medications (Trade) Dose Ordered Sig/Harleen Route PRN Reason Start Time Stop Time Status Last Admin Dose Admin Piperacillin Sod/ Tazobactam Sod 3.375 gm/Sodium Chloride 50 ml @ 100 mls/hr 1X ONCE IV 05/23/18 21:45 05/23/18 22:14 DC 05/23/18 22:15 Acetaminophen (Tylenol) 1,000 mg 1X ONCE PO 05/23/18 22:00 05/23/18 22:01 DC 05/23/18 22:00 Sodium Chloride 1,000 ml @ 1,000 mls/hr 1X ONCE IV 05/23/18 22:15 05/23/18 23:14 DC 05/23/18 22:08 Sodium Chloride 1,000 ml @ 100 mls/hr Q10H IV 05/23/18 23:15 05/24/18 10:36 DC 05/24/18 10:30 Albuterol/ Ipratropium (Duoneb) 3 ml RTQID NEB 05/24/18 08:00 05/25/18 07:59 05/24/18 12:57 Benzonatate (Tessalon Perle) 100 mg [id number] PO 05/24/18 09:30 05/24/18 10:31 Diphenhydramine HCl (Benadryl) 25 mg DAILY PO 05/24/18 09:30 05/24/18 10:31 Docusate Sodium (Colace) 100 mg BID PO 05/24/18 09:30 05/24/18 10:32 Tamsulosin HCl (Flomax) 0.4 mg DAILY PO 05/24/18 09:30 05/24/18 10:31 Cetirizine HCl (ZyrTEC) 10 mg DAILY PO 05/24/18 09:30 05/24/18 10:31 Trimethoprim/ Sulfamethoxazole (Bactrim Ds) 1 tab BID PO 05/24/18 10:45 05/24/18 10:57 ALLERGIES ALLERGIES: Coded Allergies: ciprofloxacin (Verified Allergy, Unknown, 05/23/18) ROS Review of System 14 point ROS evaluated with pertinent positives noted per HPI PHYSICAL EXAM General: Alert, Oriented X3, Cooperative, No acute distress HEENT: Atraumatic, Mucous membr. moist/pink Lungs: Clear to auscultation, Normal air movement Heart: Regular rate (SR with LBBB), Normal S1, Normal S2, No murmurs Abdomen: Soft, No tenderness Extremities: No cyanosis, No edema Skin: No breakdown, No significant lesion Neuro: Normal speech, Sensation intact Psych/Mental Status: Mental status NL, Mood NL MUSCULOSKELETAL: Osteoarthritic changes both hands VITALS VITALS Vital Signs Date Time Temp Pulse Resp B/P (MAP) Pulse Ox O2 Delivery O2 Flow Rate FiO2 05/24/18 12:57 Room Air 05/24/18 11:00 98.8 90 16 119/70 (86) 93 98.8 LABS Lab: Laboratory Tests Test 05/23/18 21:40 05/23/18 22:27 05/24/18 03:25 White Blood Count 14.6 x10^3/uL (4.0-11.0) 14.0 x10^3/uL (4.0-11.0) Red Blood Count 4.10 x10^6/uL (4.30-5.70) 3.99 x10^6/uL (4.30-5.70) Hemoglobin 13.3 g/dL (13.0-17.5) 13.2 g/dL (13.0-17.5) Hematocrit 38.2 % (39.0-53.0) 37.8 % (39.0-53.0) Mean Corpuscular Volume 93 fL (79-100) 95 fL (79-100) Mean Corpuscular Hemoglobin 33 pg (25-35) 33 pg (25-35) Mean Corpuscular Hemoglobin Concent 35 g/dL (31-37) 35 g/dL (31-37) Red Cell Distribution Width 13.9 % (11.5-14.5) 14.3 % (11.5-14.5) Platelet Count 238 x10^3/uL (140-400) 209 x10^3/uL (140-400) Neutrophils (%) (Auto) 87 % (31-73) 85 % (31-73) Lymphocytes (%) (Auto) 5 % (24-48) 8 % (24-48) Monocytes (%) (Auto) 8 % (0-9) 7 % (0-9) Eosinophils (%) (Auto) 0 % (0-3) 0 % (0-3) Basophils (%) (Auto) 0 % (0-3) 0 % (0-3) Neutrophils # (Auto) 12.7 x10^3uL (1.8-7.7) 11.8 x10^3uL (1.8-7.7) Lymphocytes # (Auto) 0.7 x10^3/uL (1.0-4.8) 1.1 x10^3/uL (1.0-4.8) Monocytes # (Auto) 1.2 x10^3/uL (0.0-1.1) 1.0 x10^3/uL (0.0-1.1) Eosinophils # (Auto) 0.0 x10^3/uL (0.0-0.7) 0.0 x10^3/uL (0.0-0.7) Basophils # (Auto) 0.0 x10^3/uL (0.0-0.2) 0.0 x10^3/uL (0.0-0.2) Segmented Neutrophils % 78 % (35-66) Lymphocytes % 10 % (24-48) Monocytes % 12 % (0-10) Platelet Estimate Adequate (ADEQUATE) Sodium Level 129 mmol/L (136-145) 137 mmol/L (136-145) Potassium Level 3.8 mmol/L (3.5-5.1) 3.8 mmol/L (3.5-5.1) Chloride Level 98 mmol/L (98-107) 103 mmol/L (98-107) Carbon Dioxide Level 21 mmol/L (21-32) 23 mmol/L (21-32) Anion Gap 10 (6-14) 11 (6-14) Blood Urea Nitrogen 16 mg/dL (8-26) 14 mg/dL (8-26) Creatinine 1.1 mg/dL (0.7-1.3) 1.3 mg/dL (0.7-1.3) Estimated GFR (Cockcroft-Gault) 65.8 54.3 Glucose Level 146 mg/dL (70-99) 148 mg/dL (70-99) Lactic Acid Level 1.2 mmol/L (0.4-2.0) Calcium Level 8.5 mg/dL (8.5-10.1) 8.4 mg/dL (8.5-10.1) Total Bilirubin 1.2 mg/dL (0.2-1.0) Direct Bilirubin 0.4 mg/dL (0.0-0.2) Aspartate Amino Transf (AST/SGOT) 28 U/L (15-37) Alanine Aminotransferase (ALT/SGPT) 36 U/L (16-63) Alkaline Phosphatase 77 U/L (46-116) Total Protein 7.4 g/dL (6.4-8.2) Albumin 3.4 g/dL (3.4-5.0) Procalcitonin 0.16 ng/mL (0.00-0.10) Urine Collection Type Unknown Urine Color Colette Urine Clarity Cloudy Urine pH 5.5 Urine Specific [place] 1.025 Urine Protein 100 mg/dL (NEG-TRACE) Urine Glucose (UA) Negative mg/dL (NEG) Urine Ketones (Stick) >=80 mg/dL (NEG) Urine Blood Moderate (NEG) Urine Nitrite Positive (NEG) Urine Bilirubin Negative (NEG) Urine Urobilinogen Dipstick 1.0 mg/dL (0.2 mg/dL) Urine Leukocyte Esterase Large (NEG) Urine RBC 3-5 /HPF (0-2) Urine WBC Tntc /HPF (0-4) Urine Squamous Epithelial Cells None /LPF Urine Bacteria Many /HPF (0-FEW) Urine Mucus Marked /LPF Magnesium Level 2.4 mg/dL (1.8-2.4) Thyroid Stimulating Hormone (TSH) 1.053 uIU/mL (0.358-3.74) ASSESSMENT/PLAN ASSESSMENT/PLAN 1. Syncope: in the setting of dehydration, prostatitis. Suspect vasovagal 2. Chronic LBBB: known with good MPI summer 2016. Follow with [facility] cardiology 3. Reactive sinus tach 4. Prostatitis: urology following 5. Hyperglycemia 6. HTN: borderline per pt 7. Atelectasis: mild vomiting with syncopal episode per pt, possibly aspirated. Defer to PCP. Recommendations 1. EKG, TTE, TSH, A1C. 2. Discussed with pt to get an outpt event monitor arranged with his [facility] mailroom clerk when discharged. 3. Sufficient IVF received already. Continue to push fluids JUSTINA MCKINNEY MD 05/24/18 1630: CARDIAC CONSULT ASSESSMENT/PLAN ASSESSMENT/PLAN Patient seen and examined. Agree with SLATE HANDLER's assessment and plan. Recurrent syncope most probably vasovagal Telemetry did not show any significant arrhythmia so for 2-D echo showed normal function without any significant structural abnormalities Plan for outpatient event monitor Thank you for your consultation ISMAEL CENTENO APRN May 24, 2018 13:30 JUSTINA MCKINNEY MD May 24, 2018 16:30
--- NOTE | 2018-05-24 13:41 | EKG ---
[facility] [address] [place] [address] Test Date: 2018-05-24 Test Time: 13:33:22 Pat Name: NETTE CHERY Department: Room: [facility] 1 Gender: M Basketball Assembler: ENOCH : 1945 Requested By: ISMAEL CENTENO Order Number: [id number] Reading MD: Fady Lund MD Measurements Intervals [place] Rate: 112 P: 41 HI: 160 QRS: -16 QRSD: 144 T: 142 QT: 352 QTc: 482 Interpretive Statements SINUS TACHYCARDIA LBBB Electronically Signed On 05-25-2018 13:50:13 CDT by Fady Lund MD
[2018-05-24 13:57] LABS: CHOLESTEROL/HDL RATIO 2.9
--- NOTE | 2018-05-24 14:59 | CARD ---
MR#: [id number] Date of Study: 05/24/2018 Ordering Physician: ISMAEL CENTENO, Referring Physician: HÉCTOR ENG Tech: Felecia Thayer [facility] APPROVED REPORT EXAM: Two-dimensional and M-mode echocardiogram with Doppler and color Doppler. Other Information Quality : Good INDICATION Syncope 2D DIMENSIONS RVDd3.3 (2.9-3.5cm)Left Atrium(2D)4.4 (1.6-4.0cm) IVSd1.3 (0.7-1.1cm)Aortic Root(2D)3.2 (2.0-3.7cm) LVDd4.3 (3.9-5.9cm)LVOT Diameter2.4 (1.8-2.4cm) PWd1.2 (0.7-1.1cm)LVDs2.7 (2.5-4.0cm) FS (%) 36.0 %SV54.5 ml Aortic Valve AoV Peak Khanh.176.0cm/sAoV VTI27.3cm AO Peak GR.12.4mmHgLVOT Peak Khanh.126.1cm/s LVOT VTI 22.61cmAO Mean GR.7mmHg TRISH (VMAX)3.30fj5WLH (VTI)3.82cm2 AI P 1/2 Ovez840av Mitral Valve MV E Smbkqmay14.7cm/sMV DECEL ELLH333fl MV A Imnptpjj626.4cm/sMV OYH28rx E/A Ratio0.7MVA (PHT)6.20cm2 Tricuspid Valve TR P. Nvhvipbm359rx/sRAP CXOHFTFP3geRo TR Peak Gr.83fuWxWBSZ13dmWl LEFT VENTRICLE The left ventricle is normal size. There is mild concentric left ventricular hypertrophy. The left ve ntricular systolic function is normal and the ejection fraction is within normal range. The Ejection Fraction is 60-65%. There is normal LV segmental wall motion. Transmitral Doppler flow pattern is Gra de I-abnormal relaxation pattern. RIGHT VENTRICLE The right ventricle is normal size. The right ventricular systolic function is normal. ATRIA The left atrium is mildly dilated. The right atrium size is normal. The interatrial septum is intact with no evidence for an atrial septal defect or patent foramen ovale as noted on 2-D or Doppler imagi ng. AORTIC VALVE The aortic valve is calcified but opens well. Doppler and Color Flow revealed trace aortic regurgitat ion. There is no significant aortic valvular stenosis. MITRAL VALVE The mitral valve is calcified but opens well. There is no evidence of mitral valve prolapse. There is no mitral valve stenosis. Doppler and Color-flow revealed trace mitral regurgitation. TRICUSPID VALVE The tricuspid valve is normal in structure and function. Doppler and Color Flow revealed trace to mil d tricuspid regurgitation. There is mild pulmonary hypertension. The PA pressure was estimated at 38 mmHg. There is no tricuspid valve stenosis. PULMONIC VALVE The pulmonic valve is not well visualized. Doppler and Color Flow revealed no pulmonic valvular regur gitation. There is no pulmonic valvular stenosis. GREAT VESSELS The aortic root is normal in size. The ascending aorta is not well seen. The IVC is normal in size an d collapses >50% with inspiration. PERICARDIAL EFFUSION There is no evidence of significant pericardial effusion. Critical Notification Critical Value: No <Conclusion> The left ventricle is normal size. The left ventricular systolic function is normal and the ejection fraction is within normal range. The Ejection Fraction is 60-65%. There is mild concentric left ventricular hypertrophy. There is no significant aortic valvular stenosis. Doppler and Color Flow revealed trace aortic regurgitation. Doppler and Color-flow revealed trace mitral regurgitation. Doppler and Color Flow revealed trace to mild tricuspid regurgitation. There is mild pulmonary hypertension. The PA pressure was estimated at 38 mmHg. Signed by : Ramos Katz MD Electronically Approved : 05/24/2018 14:57:48
[2018-05-24] MEDS: PHENAZOPYRIDINE 200 MG TABLET. PO SCH ×2 (16:39→21:00)
[2018-05-24] MEDS: LACTOBACILLUS RHAMNOSUS GG 1 CAPSULE. PO SCH (21:01)
[2018-05-24] MEDS: ACETAMINOPHEN 500 MG TABLET PO PRN (21:36)
[2018-05-25 03:00] VITALS: BP 118/64
[2018-05-25 04:24] LABS: HEMOGLOBIN A1C 5.6 % (4.8-5.6)
[2018-05-25 04:41] LABS: BASO % 0 % (0-3); EOS % 1 % (0-3); HEMATOCRIT 33.4 % (39.0-53.0); HEMOGLOBIN 11.9 g/dL (13.0-17.5); LYMPH % 12 % (24-48); MEAN CORPUSCULAR HEMOGLOBIN 33 pg (25-35); MEAN CORPUSCULAR HGB CONC 36 g/dL (31-37); MEAN CORPUSCULAR VOLUME 94 fL (79-100); MONO # 0.8 x10^3/uL (0.0-1.1); MONO % 9 % (0-9); NEUT # 6.5 x10^3uL (1.8-7.7); NEUT % 78 % (31-73); PLATELET COUNT 185 x10^3/uL (140-400); RED BLOOD COUNT 3.56 x10^6/uL (4.30-5.70); WHITE BLOOD COUNT 8.3 x10^3/uL (4.0-11.0)
[2018-05-25 07:00] VITALS: BP 144/64
[2018-05-25] MEDS: IPRATRPIUM/ALBUTEROL 0.5/2.5MG 3 ML NEBU. NEB SCH (07:30)
[2018-05-25] MEDS: BENZONATATE 100 MG CAPSULE. PO SCH ×3 (08:34→20:28)
[2018-05-25] MEDS: LACTOBACILLUS RHAMNOSUS GG 1 CAPSULE. PO SCH ×2 (08:34→20:28)
[2018-05-25] MEDS: TAMSULOSIN 0.4 MG CAP.ER.24H. PO SCH (08:34)
[2018-05-25] MEDS: SMZ/TMP 800/160MG TABLET. PO SCH ×2 (08:34→20:28)
[2018-05-25] MEDS: CETIRIZINE HCL 10 MG TABLET. PO SCH (08:34)
[2018-05-25] MEDS: diphenhydrAMINE HCL 25 MG CAPSULE PO SCH (08:34)
[2018-05-25] MEDS: DOCUSATE SODIUM 100 MG CAPSULE. PO SCH ×2 (08:34→20:28)
[2018-05-25] MEDS: PHENAZOPYRIDINE 200 MG TABLET. PO SCH ×3 (08:34→20:28)
[2018-05-25] MEDS: ASPIRIN CHEWABLE 81 MG TABLET. PO SCH (08:43)
[2018-05-25] MEDS ORDERED: SULF1TAB23 PO (09:01)
[2018-05-25] MEDS: ACETAMINOPHEN 500 MG TABLET PO PRN ×2 (09:13→22:25)
--- NOTE | 2018-05-25 09:51 | PDOC ---
SUBJECTIVE Subjective Pt notes minimal improvement over night. Still has burning and pain with urination. Has noted a change in urine color-to orange, rust when urinating. OBJECTIVE Objective Physical Exam: General appearance: Alert and Oriented Head: Normocephalic, without obvious abnormality Eyes: conjunctivae/corneas clear. PERRL, EOM's intact. Fundi benign Lungs: regular respirations, non labored breathing Abdomen: soft, non-tender. Vital Signs Vital Signs Date Time Temp Pulse Resp B/P (MAP) Pulse Ox O2 Delivery O2 Flow Rate FiO2 05/25/18 08:00 Room Air 05/25/18 07:38 90 Room Air 05/25/18 07:00 101.3 94 20 144/64 (90) 91 Room Air 101.3 05/25/18 03:00 98.6 96 16 118/64 (82) 97 Room Air 98.6 05/24/18 23:00 99.4 97 16 119/65 (83) 96 Room Air 99.4 05/24/18 20:00 Room Air 05/24/18 19:40 Room Air 05/24/18 19:00 99.7 96 18 122/68 (86) 94 Room Air 99.7 05/24/18 15:51 Room Air 05/24/18 15:00 100.5 102 18 106/59 (75) 92 Room Air 100.5 05/24/18 12:57 Room Air 05/24/18 12:00 101 126/69 (88) 132/71 (91) 121/72 (88) 05/24/18 11:00 98.8 90 16 119/70 (86) 93 Room Air 98.8 I & O Intake and Output 05/25/18 07:00 Intake Total 800 ml Output Total 0 ml Balance 800 ml Intake Oral 800 ml Output Urine Total 0 ml # Voids 4 PHYSICAL EXAM Physical Exam Physical Exam: General appearance: Alert and Oriented Head: Normocephalic, without obvious abnormality Eyes: conjunctivae/corneas clear. PERRL, EOM's intact. Fundi benign Lungs: regular respirations, non labored breathing Abdomen: soft, non-tender. ASSESSMENT/PLAN Assessment/Plan [place] was attempted yesterday but we were unable to complete, as patient is very very tender on exam. Prostate does feel enlarged, but I am unable to estimate size at this time. Bladder scan today shows PVR of 104, no need for catheterization. Continue flomax. This should improve with time and antibiotic treatment. No need for serial bladder scans, but nursing staff may bladder scan PRN patient complaint/ suspected retention. Hematuria-most likely related to prostatitis, infection. 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 Will recheck in the am and get CTU when normalized. Continue bactrim ABX treatment. He will need a full 4-6 weeks of treatment for prostatitis with a follow up around time of antibiotic completion, patient is agreeable to continuing his care with [facility]. An appointment has been secured for him on June 14, [address] Hammond at 11 am. Patient given appointment card and new patient paperwork, all questions answered. Pt spiking fevers. Blood cultures have thus far been negative. Repeat UA with culture today. COMMENT Lab Laboratory Tests Test 05/25/18 03:10 White Blood Count 8.3 x10^3/uL (4.0-11.0) Red Blood Count 3.56 x10^6/uL (4.30-5.70) Hemoglobin 11.9 g/dL (13.0-17.5) Hematocrit 33.4 % (39.0-53.0) Mean Corpuscular Volume 94 fL (79-100) Mean Corpuscular Hemoglobin 33 pg (25-35) Mean Corpuscular Hemoglobin Concent 36 g/dL (31-37) Red Cell Distribution Width 14.0 % (11.5-14.5) Platelet Count 185 x10^3/uL (140-400) Neutrophils (%) (Auto) 78 % (31-73) Lymphocytes (%) (Auto) 12 % (24-48) Monocytes (%) (Auto) 9 % (0-9) Eosinophils (%) (Auto) 1 % (0-3) Basophils (%) (Auto) 0 % (0-3) Neutrophils # (Auto) 6.5 x10^3uL (1.8-7.7) Lymphocytes # (Auto) 1.0 x10^3/uL (1.0-4.8) Monocytes # (Auto) 0.8 x10^3/uL (0.0-1.1) Eosinophils # (Auto) 0.0 x10^3/uL (0.0-0.7) Basophils # (Auto) 0.0 x10^3/uL (0.0-0.2) FELY KNIGHT APRN May 25, 2018 09:51
[2018-05-25 11:00] VITALS: BP 137/73
--- NOTE | 2018-05-25 11:23 | PDOC ---
PROGRESS NOTES Chief Complaint Chief Complaint UTI in a male Syncope rule out arrhythmia/cardiac in etiology - 2nd episode History of LBBB History of prostatitis Cipro allergy Dysuria\ Fevers History of Present Illness History of Present Illness Temperature 101 today Blood culture preliminary no growth Urine culture still pending No white count Outpatient event monitor planned by cardiology No further syncope or arthritic events overnight Plan: Blood culture now Start Zosyn-continue Bactrim Hold discharge CBC tomorrow Continue pyridium and other meds Outpatient event monitor by cardiology Vitals Vitals Vital Signs Date Time Temp Pulse Resp B/P (MAP) Pulse Ox O2 Delivery O2 Flow Rate FiO2 05/25/18 08:00 Room Air 05/25/18 07:38 90 05/25/18 07:00 101.3 94 20 144/64 (90) 101.3 Physical Exam General: Alert, Oriented X3, Cooperative, No acute distress Heart: Regular rate (SR with LBBB), Normal S1, Normal S2, No murmurs Abdomen: Soft, No tenderness Extremities: No cyanosis, No edema Skin: No breakdown, No significant lesion Labs LABS Laboratory Tests Test 05/25/18 03:10 White Blood Count 8.3 x10^3/uL (4.0-11.0) Red Blood Count 3.56 x10^6/uL (4.30-5.70) Hemoglobin 11.9 g/dL (13.0-17.5) Hematocrit 33.4 % (39.0-53.0) Mean Corpuscular Volume 94 fL (79-100) Mean Corpuscular Hemoglobin 33 pg (25-35) Mean Corpuscular Hemoglobin Concent 36 g/dL (31-37) Red Cell Distribution Width 14.0 % (11.5-14.5) Platelet Count 185 x10^3/uL (140-400) Neutrophils (%) (Auto) 78 % (31-73) Lymphocytes (%) (Auto) 12 % (24-48) Monocytes (%) (Auto) 9 % (0-9) Eosinophils (%) (Auto) 1 % (0-3) Basophils (%) (Auto) 0 % (0-3) Neutrophils # (Auto) 6.5 x10^3uL (1.8-7.7) Lymphocytes # (Auto) 1.0 x10^3/uL (1.0-4.8) Monocytes # (Auto) 0.8 x10^3/uL (0.0-1.1) Eosinophils # (Auto) 0.0 x10^3/uL (0.0-0.7) Basophils # (Auto) 0.0 x10^3/uL (0.0-0.2) Review of Systems Review of Systems Fevers, dysuria, the rest of ROS 14 point negative Assessment and Plan Assessmemt and Plan Problems Medical Problems: (1) Aspiration pneumonitis Status: Acute (2) Seizure-like activity Status: Acute (3) Sepsis Status: Acute Comment Review of Relevant I have reviewed the following items tony (where applicable) has been applied. Labs Laboratory Tests Test 05/23/18 21:40 05/23/18 22:27 05/24/18 03:25 05/25/18 03:10 White Blood Count 14.6 x10^3/uL (4.0-11.0) 14.0 x10^3/uL (4.0-11.0) 8.3 x10^3/uL (4.0-11.0) Red Blood Count 4.10 x10^6/uL (4.30-5.70) 3.99 x10^6/uL (4.30-5.70) 3.56 x10^6/uL (4.30-5.70) Hemoglobin 13.3 g/dL (13.0-17.5) 13.2 g/dL (13.0-17.5) 11.9 g/dL (13.0-17.5) Hematocrit 38.2 % (39.0-53.0) 37.8 % (39.0-53.0) 33.4 % (39.0-53.0) Mean Corpuscular Volume 93 fL (79-100) 95 fL (79-100) 94 fL (79-100) Mean Corpuscular Hemoglobin 33 pg (25-35) 33 pg (25-35) 33 pg (25-35) Mean Corpuscular Hemoglobin Concent 35 g/dL (31-37) 35 g/dL (31-37) 36 g/dL (31-37) Red Cell Distribution Width 13.9 % (11.5-14.5) 14.3 % (11.5-14.5) 14.0 % (11.5-14.5) Platelet Count 238 x10^3/uL (140-400) 209 x10^3/uL (140-400) 185 x10^3/uL (140-400) Neutrophils (%) (Auto) 87 % (31-73) 85 % (31-73) 78 % (31-73) Lymphocytes (%) (Auto) 5 % (24-48) 8 % (24-48) 12 % (24-48) Monocytes (%) (Auto) 8 % (0-9) 7 % (0-9) 9 % (0-9) Eosinophils (%) (Auto) 0 % (0-3) 0 % (0-3) 1 % (0-3) Basophils (%) (Auto) 0 % (0-3) 0 % (0-3) 0 % (0-3) Neutrophils # (Auto) 12.7 x10^3uL (1.8-7.7) 11.8 x10^3uL (1.8-7.7) 6.5 x10^3uL (1.8-7.7) Lymphocytes # (Auto) 0.7 x10^3/uL (1.0-4.8) 1.1 x10^3/uL (1.0-4.8) 1.0 x10^3/uL (1.0-4.8) Monocytes # (Auto) 1.2 x10^3/uL (0.0-1.1) 1.0 x10^3/uL (0.0-1.1) 0.8 x10^3/uL (0.0-1.1) Eosinophils # (Auto) 0.0 x10^3/uL (0.0-0.7) 0.0 x10^3/uL (0.0-0.7) 0.0 x10^3/uL (0.0-0.7) Basophils # (Auto) 0.0 x10^3/uL (0.0-0.2) 0.0 x10^3/uL (0.0-0.2) 0.0 x10^3/uL (0.0-0.2) Segmented Neutrophils % 78 % (35-66) Lymphocytes % 10 % (24-48) Monocytes % 12 % (0-10) Platelet Estimate Adequate (ADEQUATE) Sodium Level 129 mmol/L (136-145) 137 mmol/L (136-145) Potassium Level 3.8 mmol/L (3.5-5.1) 3.8 mmol/L (3.5-5.1) Chloride Level 98 mmol/L (98-107) 103 mmol/L (98-107) Carbon Dioxide Level 21 mmol/L (21-32) 23 mmol/L (21-32) Anion Gap 10 (6-14) 11 (6-14) Blood Urea Nitrogen 16 mg/dL (8-26) 14 mg/dL (8-26) Creatinine 1.1 mg/dL (0.7-1.3) 1.3 mg/dL (0.7-1.3) Estimated GFR (Cockcroft-Gault) 65.8 54.3 Glucose Level 146 mg/dL (70-99) 148 mg/dL (70-99) Lactic Acid Level 1.2 mmol/L (0.4-2.0) Calcium Level 8.5 mg/dL (8.5-10.1) 8.4 mg/dL (8.5-10.1) Total Bilirubin 1.2 mg/dL (0.2-1.0) Direct Bilirubin 0.4 mg/dL (0.0-0.2) Aspartate Amino Transf (AST/SGOT) 28 U/L (15-37) Alanine Aminotransferase (ALT/SGPT) 36 U/L (16-63) Alkaline Phosphatase 77 U/L (46-116) Total Protein 7.4 g/dL (6.4-8.2) Albumin 3.4 g/dL (3.4-5.0) Procalcitonin 0.16 ng/mL (0.00-0.10) Urine Collection Type Unknown Urine Color [place] Urine Clarity Cloudy Urine pH 5.5 Urine Specific [place] 1.025 Urine Protein 100 mg/dL (NEG-TRACE) Urine Glucose (UA) Negative mg/dL (NEG) Urine Ketones (Stick) >=80 mg/dL (NEG) Urine Blood Moderate (NEG) Urine Nitrite Positive (NEG) Urine Bilirubin Negative (NEG) Urine Urobilinogen Dipstick 1.0 mg/dL (0.2 mg/dL) Urine Leukocyte Esterase Large (NEG) Urine RBC 3-5 /HPF (0-2) Urine WBC Tntc /HPF (0-4) Urine Squamous Epithelial Cells None /LPF Urine Bacteria Many /HPF (0-FEW) Urine Mucus Marked /LPF Hemoglobin A1c 5.6 % (4.8-5.6) Magnesium Level 2.4 mg/dL (1.8-2.4) Triglycerides Level 50 mg/dL (0-150) Cholesterol Level 166 mg/dL (0-200) LDL Cholesterol, Calculated 99 mg/dL (0-100) VLDL Cholesterol, Calculated 10 mg/dL (0-40) Non-HDL Cholesterol Calculated 109 mg/dL (0-129) HDL Cholesterol 57 mg/dL (40-60) Cholesterol/HDL Ratio 2.9 Thyroid Stimulating Hormone (TSH) 1.053 uIU/mL (0.358-3.74) Laboratory Tests Test 05/25/18 03:10 White Blood Count 8.3 x10^3/uL (4.0-11.0) Red Blood Count 3.56 x10^6/uL (4.30-5.70) Hemoglobin 11.9 g/dL (13.0-17.5) Hematocrit 33.4 % (39.0-53.0) Mean Corpuscular Volume 94 fL (79-100) Mean Corpuscular Hemoglobin 33 pg (25-35) Mean Corpuscular Hemoglobin Concent 36 g/dL (31-37) Red Cell Distribution Width 14.0 % (11.5-14.5) Platelet Count 185 x10^3/uL (140-400) Neutrophils (%) (Auto) 78 % (31-73) Lymphocytes (%) (Auto) 12 % (24-48) Monocytes (%) (Auto) 9 % (0-9) Eosinophils (%) (Auto) 1 % (0-3) Basophils (%) (Auto) 0 % (0-3) Neutrophils # (Auto) 6.5 x10^3uL (1.8-7.7) Lymphocytes # (Auto) 1.0 x10^3/uL (1.0-4.8) Monocytes # (Auto) 0.8 x10^3/uL (0.0-1.1) Eosinophils # (Auto) 0.0 x10^3/uL (0.0-0.7) Basophils # (Auto) 0.0 x10^3/uL (0.0-0.2) Microbiology 05/23/18 Blood Culture - Preliminary, Resulted NO GROWTH AFTER 1 DAY Medications Current Medications Piperacillin Sod/ Tazobactam Sod 3.375 gm/Sodium Chloride 50 ml @ 100 mls/hr 1X ONCE IV Last administered on 05/23/18at 22:15; Start 05/23/18 at 21:45; Stop 05/23/18 at 22:14; Status DC Acetaminophen (Tylenol) 1,000 mg 1X ONCE PO Last administered on 05/23/18at 22: 00; Start 05/23/18 at 22:00; Stop 05/23/18 at 22:01; Status DC Sodium Chloride 1,000 ml @ 1,000 mls/hr 1X ONCE IV Last administered on at 22:08; Start 05/23/18 at 22:15; Stop 05/23/18 at 23:14; Status DC Ondansetron HCl (Zofran) 4 mg PRN Q8HRS PRN IV NAUSEA/VOMITING; Start 05/23/18 at 23:15; Stop 05/24/18 at 09:01; Status DC Sodium Chloride 1,000 ml @ 100 mls/hr Q10H IV Last administered on 05/24/18at 10:30; Start 05/23/18 at 23:15; Stop 05/24/18 at 10:36; Status DC Albuterol/ Ipratropium (Duoneb) 3 ml RTQID NEB Last administered on 05/25/18at 07:30; Start 05/24/18 at 08:00; Stop 05/25/18 at 07:59; Status DC Ondansetron HCl (Zofran) 4 mg PRN Q6HRS PRN IV NAUSEA/VOMITING; Start 05/24/18 at 09:15 Acetaminophen (Tylenol) 500 mg PRN Q6HRS PRN PO MILD PAIN / TEMP Last administered on 05/25/18at 09:13; Start 05/24/18 at 09:00 Acetaminophen/ Codeine Phosphate (Tylenol #3) 1 tab PRN Q6HRS PRN PO MODERATE - SEVERE PAIN; Start 05/24/18 at 09:00 Benzonatate (Tessalon Perle) 100 mg [id number] PO Last administered on 05/25/18 08 :34; Start 05/24/18 at 09:30 Guaifenesin (Robitussin Dm) 10 ml PRN Q6HRS PRN PO COUGH; Start 05/24/18 at 09: 00 Aspirin (Children'S Aspirin) 81 mg DAILY PO Last administered on 05/25/18 08: 43; Start 05/25/18 at 09:30 Diphenhydramine HCl (Benadryl) 25 mg DAILY PO Last administered on 05/25/18 08 :34; Start 05/24/18 at 09:30 Docusate Sodium (Colace) 100 mg BID PO Last administered on 05/25/18 08:34; Start 05/24/18 at 09:30 Tamsulosin HCl (Flomax) 0.4 mg DAILY PO Last administered on 05/25/18 08:34; Start 05/24/18 at 09:30 Cetirizine HCl (ZyrTEC) 10 mg DAILY PO Last administered on 05/25/18 08:34; Start 05/24/18 at 09:30 Phenazopyridine HCl (Pyridium) 200 mg TID PO Last administered on 05/25/18 08: 34; Start 05/24/18 at 15:00 Trimethoprim/ Sulfamethoxazole (Bactrim Ds) 1 tab BID PO Last administered on 08:34; Start 05/24/18 at 10:45 Lactobacillus Rhamnosus (Culturelle) 1 cap BID PO Last administered on 08:34; Start 05/24/18 at 21:00 Active Scripts Active Bactrim 400-80 Mg Tablet (Sulfamethoxazole/Trimethoprim) 1 Each Tablet 1 Tab PO BID 72 Days Reported Benadryl (Diphenhydramine Hcl) 25 Mg Capsule 25 Mg PO DAILY Loratadine 10 Mg Tablet 1 Tab PO DAILY Colace (Docusate Sodium) 100 Mg Capsule 1 Cap PO BID Flomax (Tamsulosin Hcl) 0.4 Mg Cap.er.24h 1 Cap PO DAILY Children's Aspirin (Aspirin) 81 Mg Tab.chew 81 Mg PO DAILY Vitals/I & O Vital Sign - Last 24 Hours 05/24/18 05/24/18 05/24/18 05/24/18 12:00 12:57 15:00 15:51 Temp 100.5 100.5 Pulse 101 102 Resp 18 B/P (MAP) 126/69 (88) 106/59 (75) 132/71 (91) 121/72 (88) Pulse Ox 92 O2 Delivery Room Air Room Air Room Air 05/24/18 05/24/18 05/24/18 05/24/18 19:00 19:40 20:00 23:00 Temp 99.7 99.4 99.7 99.4 Pulse 96 97 Resp 18 16 B/P (MAP) 122/68 (86) 119/65 (83) Pulse Ox 94 96 O2 Delivery Room Air Room Air Room Air Room Air 05/25/18 05/25/18 05/25/18 05/25/18 03:00 07:00 07:38 08:00 Temp 98.6 101.3 98.6 101.3 Pulse 96 94 Resp 16 20 B/P (MAP) 118/64 (82) 144/64 (90) Pulse Ox 97 91 90 O2 Delivery Room Air Room Air Room Air Room Air Intake and Output 05/24/18 05/24/18 05/25/18 15:00 23:00 07:00 Intake Total 800 ml Output Total 0 ml Balance 800 ml 0 ml HÉCTOR ENG MD May 25, 2018 11:23
[2018-05-25] MEDS ORDERED: PIP/TAZO PER PHARMACY MC PRN (11:30)
[2018-05-25] MEDS: PIPERACILLIN/TAZOBACTAM 3.375 GM in IV NORMAL SALINE 50ML 50 ML IV SCH ×2 (14:36→19:40)
[2018-05-25 14:38] LABS: BILIRUBIN,URINE NEGATIVE (NEG); CLARITY,URINE CLEAR; COLOR,URINE ORANGE; NITRITE,URINE POSITIVE (NEG); PH,URINE 6.5; PROTEIN,URINE NEGATIVE (NEG-TRACE)
[2018-05-25 14:54] LABS: RBC,URINE 0 /HPF (0-2)
[2018-05-25 15:00] VITALS: BP 115/70
[2018-05-25 15:00] LABS: BACTERIA,URINE 0 /HPF (0-FEW)
[2018-05-25] MEDS: POLYETHYLENE GLYCOL 3350 17 GM PACKET. PO PRN (17:35)
[2018-05-25] MEDS: ALBUTEROL SULFATE 2.5 MG/3 ML NEBU. NEB PRN (18:40)
[2018-05-25 19:00] VITALS: BP 131/68
[2018-05-25 22:39] VITALS: BP 142/75
[2018-05-26] MEDS: PIPERACILLIN/TAZOBACTAM 3.375 GM in IV NORMAL SALINE 50ML 50 ML IV SCH ×5 (00:22→23:32)
[2018-05-26 03:00] VITALS: BP 121/76
[2018-05-26 04:29] LABS: BASO % 1 % (0-3); EOS # 0.1 x10^3/uL (0.0-0.7); EOS % 2 % (0-3); HEMOGLOBIN 13.2 g/dL (13.0-17.5); LYMPH # 0.9 x10^3/uL (1.0-4.8); LYMPH % 17 % (24-48); MEAN CORPUSCULAR HEMOGLOBIN 33 pg (25-35); MEAN CORPUSCULAR HGB CONC 36 g/dL (31-37); MEAN CORPUSCULAR VOLUME 93 fL (79-100); MONO # 0.6 x10^3/uL (0.0-1.1); MONO % 11 % (0-9); NEUT # 3.6 x10^3uL (1.8-7.7); NEUT % 69 % (31-73); PLATELET COUNT 219 x10^3/uL (140-400); RED BLOOD COUNT 3.98 x10^6/uL (4.30-5.70); RED CELL DISTRIBUTION WIDTH 13.9 % (11.5-14.5); WHITE BLOOD COUNT 5.2 x10^3/uL (4.0-11.0)
[2018-05-26 04:43] LABS: ALBUMIN 2.8 g/dL (3.4-5.0); ALBUMIN/GLOBULIN RATIO 0.7 (1.0-1.7); CALCIUM 8.3 mg/dL (8.5-10.1); CREATININE 1.1 mg/dL (0.7-1.3); GFR 65.8; POTASSIUM 3.6 mmol/L (3.5-5.1); TOTAL BILIRUBIN 0.8 mg/dL (0.2-1.0); TOTAL PROTEIN 6.9 g/dL (6.4-8.2)
[2018-05-26] MEDS: ACETAMINOPHEN 500 MG TABLET PO PRN (06:24)
[2018-05-26 07:57] VITALS: BP 118/73
[2018-05-26] MEDS: PHENAZOPYRIDINE 200 MG TABLET. PO SCH (09:00)
[2018-05-26] MEDS: LACTOBACILLUS RHAMNOSUS GG 1 CAPSULE. PO SCH ×2 (09:12→20:16)
[2018-05-26] MEDS: TAMSULOSIN 0.4 MG CAP.ER.24H. PO SCH (09:12)
[2018-05-26] MEDS: BENZONATATE 100 MG CAPSULE. PO SCH ×3 (09:12→20:15)
[2018-05-26] MEDS: ASPIRIN CHEWABLE 81 MG TABLET. PO SCH (09:12)
[2018-05-26] MEDS: SMZ/TMP 800/160MG TABLET. PO SCH ×2 (09:12→20:15)
[2018-05-26] MEDS: diphenhydrAMINE HCL 25 MG CAPSULE PO SCH (09:12)
[2018-05-26] MEDS: CETIRIZINE HCL 10 MG TABLET. PO SCH (09:13)
[2018-05-26] MEDS: DOCUSATE SODIUM 100 MG CAPSULE. PO SCH ×2 (09:13→20:17)
[2018-05-26] MEDS: POLYETHYLENE GLYCOL 3350 17 GM PACKET. PO PRN (09:49)
--- NOTE | 2018-05-26 10:13 | PDOC ---
SUBJECTIVE Subjective Pt doing well today. His dysuria is improving and he is trying to cut back on Pyridium because of this.. He would like to get up and walk if possible. OBJECTIVE Objective Physical Exam: General appearance: Alert and Oriented Head: Normocephalic, without obvious abnormality Eyes: conjunctivae/corneas clear. PERRL, EOM's intact. Fundi benign Lungs: regular respirations, non labored breathing Pelvic: deferred Vital Signs Vital Signs Date Time Temp Pulse Resp B/P (MAP) Pulse Ox O2 Delivery O2 Flow Rate FiO2 05/26/18 07:57 97.9 81 16 118/73 (88) 94 Room Air 97.9 05/26/18 03:00 98.2 85 18 121/76 (91) 92 Room Air 98.2 05/25/18 22:39 100.8 100 18 142/75 (97) 92 Room Air 100.8 05/25/18 20:00 Room Air 05/25/18 19:00 99.7 104 19 131/68 (89) 91 Room Air 99.7 05/25/18 18:40 91 Room Air 05/25/18 15:00 100.9 95 20 115/70 (85) 93 Room Air 100.9 05/25/18 11:00 100.0 93 20 137/73 (94) 92 Room Air 100.0 I & O Intake and Output 05/26/18 07:00 Intake Total 1590 ml Output Total 650 ml Balance 940 ml Intake Oral 1440 ml IV Total 150 ml Output Urine Total 650 ml # Voids 4 # Bowel Movements 2 PHYSICAL EXAM Physical Exam Physical Exam: General appearance: Alert and Oriented Head: Normocephalic, without obvious abnormality Eyes: conjunctivae/corneas clear. PERRL, EOM's intact. Fundi benign Lungs: regular respirations, non labored breathing Pelvic: deferred ASSESSMENT/PLAN Assessment/Plan QUALITY ASSURANCE INTERN down to 1.1. We will get a CTU today for hematuria Continue Pyridium for comfort PRN; pt says his dysuria has improved enough that he doesn't need it as much. Patient had fevers until 2300 last night. Continue antibiotics. WBC improving. Patient still has paperwork and appointment card for upcoming appointment with DR. Hammond. Dr. Frey will round on patient over the weekend. Problems: (1) UTI (urinary tract infection) COMMENT Lab Laboratory Tests Test 9/13/18 13:35 05/26/18 03:10 Urine Collection Type Unknown Urine Color [place] Urine Clarity Clear Urine pH 6.5 Urine Specific [place] 1.015 Urine Protein Negative mg/dL (NEG-TRACE) Urine Glucose (UA) Negative mg/dL (NEG) Urine Ketones (Stick) Trace mg/dL (NEG) Urine Blood Negative (NEG) Urine Nitrite Positive (NEG) Urine Bilirubin Negative (NEG) Urine Urobilinogen Dipstick 4.0 mg/dL (0.2 mg/dL) Urine Leukocyte Esterase Moderate (NEG) Urine RBC 0 /HPF (0-2) Urine WBC 5-10 /HPF (0-4) Urine Squamous Epithelial Cells None /LPF Urine Bacteria 0 /HPF (0-FEW) White Blood Count 5.2 x10^3/uL (4.0-11.0) Red Blood Count 3.98 x10^6/uL (4.30-5.70) Hemoglobin 13.2 g/dL (13.0-17.5) Hematocrit 37.0 % (39.0-53.0) Mean Corpuscular Volume 93 fL (79-100) Mean Corpuscular Hemoglobin 33 pg (25-35) Mean Corpuscular Hemoglobin Concent 36 g/dL (31-37) Red Cell Distribution Width 13.9 % (11.5-14.5) Platelet Count 219 x10^3/uL (140-400) Neutrophils (%) (Auto) 69 % (31-73) Lymphocytes (%) (Auto) 17 % (24-48) Monocytes (%) (Auto) 11 % (0-9) Eosinophils (%) (Auto) 2 % (0-3) Basophils (%) (Auto) 1 % (0-3) Neutrophils # (Auto) 3.6 x10^3uL (1.8-7.7) Lymphocytes # (Auto) 0.9 x10^3/uL (1.0-4.8) Monocytes # (Auto) 0.6 x10^3/uL (0.0-1.1) Eosinophils # (Auto) 0.1 x10^3/uL (0.0-0.7) Basophils # (Auto) 0.0 x10^3/uL (0.0-0.2) Sodium Level 136 mmol/L (136-145) Potassium Level 3.6 mmol/L (3.5-5.1) Chloride Level 101 mmol/L (98-107) Carbon Dioxide Level 23 mmol/L (21-32) Anion Gap 12 (6-14) Blood Urea Nitrogen 7 mg/dL (8-26) Creatinine 1.1 mg/dL (0.7-1.3) Estimated GFR (Cockcroft-Gault) 65.8 BUN/Creatinine Ratio 6 (6-20) Glucose Level 108 mg/dL (70-99) Calcium Level 8.3 mg/dL (8.5-10.1) Total Bilirubin 0.8 mg/dL (0.2-1.0) Aspartate Amino Transf (AST/SGOT) 91 U/L (15-37) Alanine Aminotransferase (ALT/SGPT) 144 U/L (16-63) Alkaline Phosphatase 114 U/L (46-116) Total Protein 6.9 g/dL (6.4-8.2) Albumin 2.8 g/dL (3.4-5.0) Albumin/Globulin Ratio 0.7 (1.0-1.7) FELY KNIGHT APRN May 26, 2018 10:13
[2018-05-26] MEDS ORDERED: IOHEXOL 300 MG/ML 100ML VIAL. IV ONE (10:30)
[2018-05-26] MEDS ORDERED: CONTRAST GIVEN. MC PRN (10:30)
[2018-05-26 11:37] VITALS: BP 141/69
--- NOTE | 2018-05-26 12:04 | RAD ---
CT of the abdomen and pelvis with and without contrast, CT urogram, 05/26/2018: HISTORY: Hematuria Multidetector CT imaging was performed prior to and following an IV bolus injection of iodinated contrast material. The postcontrast imaging was performed through the kidneys in a nephrographic phase and through the entire urinary tract in an expiratory phase. 3-D MIP images were constructed from the excretory phase data. Several small nonobstructing calculi are seen in the lower poles of both kidneys. The largest of these on both sides measure 4-5 mm. The kidneys show no evidence of obstruction. There is mild streaky perinephric edema bilaterally. A 2 cm parapelvic renal cyst is present in the lower pole of the left kidney. There is a elongated 9 x 24 mm low-density structure in the upper pole the right kidney. It demonstrates a low internal CT number compatible with a cyst. The ureters are unremarkable. The prostate gland is enlarged measuring 6.1 cm in width. It contains calcifications. It produces a mild impression upon the floor of the urinary bladder. No intrinsic bladder abnormality is seen. There is moderate streaky scarring and/or atelectasis in the lung bases. A few scattered coronary artery calcifications are present. No significant hepatic abnormality is seen. The gallbladder is collapsed. No pancreatic abnormality is detected. Calcified granulomata are present in the spleen. The spleen is of normal size. Moderate aortoiliac calcific plaquing is present. No abdominal or pelvic adenopathy is seen. The bowel loops are not dilated. There appears to be a small hiatal hernia. No free fluid or free air is evident in the abdomen or pelvis. Moderate scattered degenerative changes are present in the spine. A mild superior endplate deformity at L4 appears old. IMPRESSION: 1. Small bilateral nonobstructing intrarenal calculi. 2. Small bilateral renal cysts. 3. Mild bilateral perinephric edema. 4. Nonspecific prostatic enlargement. 5. Additional miscellaneous findings as described above. PQRS Compliance Statement: One or more of the following individualized dose reduction techniques were utilized for this examination: 1. Automated exposure control 2. Adjustment of the mA and/or kV according to patient size 3. Use of iterative reconstruction technique Electronically signed by: Chuy Lazar MD (05/26/2018 12:00 PM) [facility]
[2018-05-26] MEDS ORDERED: PHENAZOPYRIDINE 200 MG TABLET. PO PRN (12:30)
--- NOTE | 2018-05-26 12:31 | PDOC ---
PROGRESS NOTES Chief Complaint Chief Complaint UTI in a male fevers HEmaturia, gross (05/26) Renal cysts, small bilateral NUmerous non obstructing renal calculi Syncope rule out arrhythmia/cardiac in etiology - 2nd episode History of LBBB History of prostatitis Cipro allergy Dysuria\ History of Present Illness History of Present Illness COnt to have Low-grade temperatures last night Patient did had diaphoresis No chest pain Urine culture is still not yet out-I did discuss with micro-today, hopefully out this afternoon Blood culture preliminary is negative He requested for the Bactrim, I did add Zosyn because of the fevers Gross hematuria today-urology has ordered a CAT scan Plan: Consult ID Labs again tomorrow Follow-up urine culture I did provide and discussed the CAT scan findings that urology ordered today Numerous nonobstructing renal calculi, bilateral renal cysts which are rather small which can explain the hematuria? Enlarged prostate impressing on the bladder wall I have provided a copy and discussed with the son at bedside Vitals Vitals Vital Signs Date Time Temp Pulse Resp B/P (MAP) Pulse Ox O2 Delivery O2 Flow Rate FiO2 05/26/18 11:37 97.5 81 16 141/69 (93) 96 Room Air 97.5 Physical Exam General: Alert, Oriented X3, Cooperative, No acute distress Heart: Regular rate (SR with LBBB), Normal S1, Normal S2, No murmurs Abdomen: Soft, No tenderness Extremities: No cyanosis, No edema Skin: No breakdown, No significant lesion Labs LABS Laboratory Tests Test 05/25/18 13:35 05/26/18 03:10 Urine Collection Type Unknown Urine Color [place] Urine Clarity Clear Urine pH 6.5 Urine Specific [place] 1.015 Urine Protein Negative mg/dL (NEG-TRACE) Urine Glucose (UA) Negative mg/dL (NEG) Urine Ketones (Stick) Trace mg/dL (NEG) Urine Blood Negative (NEG) Urine Nitrite Positive (NEG) Urine Bilirubin Negative (NEG) Urine Urobilinogen Dipstick 4.0 mg/dL (0.2 mg/dL) Urine Leukocyte Esterase Moderate (NEG) Urine RBC 0 /HPF (0-2) Urine WBC 5-10 /HPF (0-4) Urine Squamous Epithelial Cells None /LPF Urine Bacteria 0 /HPF (0-FEW) White Blood Count 5.2 x10^3/uL (4.0-11.0) Red Blood Count 3.98 x10^6/uL (4.30-5.70) Hemoglobin 13.2 g/dL (13.0-17.5) Hematocrit 37.0 % (39.0-53.0) Mean Corpuscular Volume 93 fL (79-100) Mean Corpuscular Hemoglobin 33 pg (25-35) Mean Corpuscular Hemoglobin Concent 36 g/dL (31-37) Red Cell Distribution Width 13.9 % (11.5-14.5) Platelet Count 219 x10^3/uL (140-400) Neutrophils (%) (Auto) 69 % (31-73) Lymphocytes (%) (Auto) 17 % (24-48) Monocytes (%) (Auto) 11 % (0-9) Eosinophils (%) (Auto) 2 % (0-3) Basophils (%) (Auto) 1 % (0-3) Neutrophils # (Auto) 3.6 x10^3uL (1.8-7.7) Lymphocytes # (Auto) 0.9 x10^3/uL (1.0-4.8) Monocytes # (Auto) 0.6 x10^3/uL (0.0-1.1) Eosinophils # (Auto) 0.1 x10^3/uL (0.0-0.7) Basophils # (Auto) 0.0 x10^3/uL (0.0-0.2) Sodium Level 136 mmol/L (136-145) Potassium Level 3.6 mmol/L (3.5-5.1) Chloride Level 101 mmol/L (98-107) Carbon Dioxide Level 23 mmol/L (21-32) Anion Gap 12 (6-14) Blood Urea Nitrogen 7 mg/dL (8-26) Creatinine 1.1 mg/dL (0.7-1.3) Estimated GFR (Cockcroft-Gault) 65.8 BUN/Creatinine Ratio 6 (6-20) Glucose Level 108 mg/dL (70-99) Calcium Level 8.3 mg/dL (8.5-10.1) Total Bilirubin 0.8 mg/dL (0.2-1.0) Aspartate Amino Transf (AST/SGOT) 91 U/L (15-37) Alanine Aminotransferase (ALT/SGPT) 144 U/L (16-63) Alkaline Phosphatase 114 U/L (46-116) Total Protein 6.9 g/dL (6.4-8.2) Albumin 2.8 g/dL (3.4-5.0) Albumin/Globulin Ratio 0.7 (1.0-1.7) Review of Systems Review of Systems hematuria, fevers, no pain, rest of 14 pt neg Assessment and Plan Assessmemt and Plan Problems Medical Problems: (1) Aspiration pneumonitis Status: Acute (2) Seizure-like activity Status: Acute (3) Sepsis Status: Acute Comment Review of Relevant I have reviewed the following items tony (where applicable) has been applied. Labs Laboratory Tests Test 05/25/18 03:10 05/25/18 13:35 05/26/18 03:10 White Blood Count 8.3 x10^3/uL (4.0-11.0) 5.2 x10^3/uL (4.0-11.0) Red Blood Count 3.56 x10^6/uL (4.30-5.70) 3.98 x10^6/uL (4.30-5.70) Hemoglobin 11.9 g/dL (13.0-17.5) 13.2 g/dL (13.0-17.5) Hematocrit 33.4 % (39.0-53.0) 37.0 % (39.0-53.0) Mean Corpuscular Volume 94 fL (79-100) 93 fL (79-100) Mean Corpuscular Hemoglobin 33 pg (25-35) 33 pg (25-35) Mean Corpuscular Hemoglobin Concent 36 g/dL (31-37) 36 g/dL (31-37) Red Cell Distribution Width 14.0 % (11.5-14.5) 13.9 % (11.5-14.5) Platelet Count 185 x10^3/uL (140-400) 219 x10^3/uL (140-400) Neutrophils (%) (Auto) 78 % (31-73) 69 % (31-73) Lymphocytes (%) (Auto) 12 % (24-48) 17 % (24-48) Monocytes (%) (Auto) 9 % (0-9) 11 % (0-9) Eosinophils (%) (Auto) 1 % (0-3) 2 % (0-3) Basophils (%) (Auto) 0 % (0-3) 1 % (0-3) Neutrophils # (Auto) 6.5 x10^3uL (1.8-7.7) 3.6 x10^3uL (1.8-7.7) Lymphocytes # (Auto) 1.0 x10^3/uL (1.0-4.8) 0.9 x10^3/uL (1.0-4.8) Monocytes # (Auto) 0.8 x10^3/uL (0.0-1.1) 0.6 x10^3/uL (0.0-1.1) Eosinophils # (Auto) 0.0 x10^3/uL (0.0-0.7) 0.1 x10^3/uL (0.0-0.7) Basophils # (Auto) 0.0 x10^3/uL (0.0-0.2) 0.0 x10^3/uL (0.0-0.2) Urine Collection Type Unknown Urine Color [place] Urine Clarity Clear Urine pH 6.5 Urine Specific [place] 1.015 Urine Protein Negative mg/dL (NEG-TRACE) Urine Glucose (UA) Negative mg/dL (NEG) Urine Ketones (Stick) Trace mg/dL (NEG) Urine Blood Negative (NEG) Urine Nitrite Positive (NEG) Urine Bilirubin Negative (NEG) Urine Urobilinogen Dipstick 4.0 mg/dL (0.2 mg/dL) Urine Leukocyte Esterase Moderate (NEG) Urine RBC 0 /HPF (0-2) Urine WBC 5-10 /HPF (0-4) Urine Squamous Epithelial Cells None /LPF Urine Bacteria 0 /HPF (0-FEW) Sodium Level 136 mmol/L (136-145) Potassium Level 3.6 mmol/L (3.5-5.1) Chloride Level 101 mmol/L (98-107) Carbon Dioxide Level 23 mmol/L (21-32) Anion Gap 12 (6-14) Blood Urea Nitrogen 7 mg/dL (8-26) Creatinine 1.1 mg/dL (0.7-1.3) Estimated GFR (Cockcroft-Gault) 65.8 BUN/Creatinine Ratio 6 (6-20) Glucose Level 108 mg/dL (70-99) Calcium Level 8.3 mg/dL (8.5-10.1) Total Bilirubin 0.8 mg/dL (0.2-1.0) Aspartate Amino Transf (AST/SGOT) 91 U/L (15-37) Alanine Aminotransferase (ALT/SGPT) 144 U/L (16-63) Alkaline Phosphatase 114 U/L (46-116) Total Protein 6.9 g/dL (6.4-8.2) Albumin 2.8 g/dL (3.4-5.0) Albumin/Globulin Ratio 0.7 (1.0-1.7) Laboratory Tests Test 05/25/18 13:35 05/26/18 03:10 Urine Collection Type Unknown Urine Color [place] Urine Clarity Clear Urine pH 6.5 Urine Specific [place] 1.015 Urine Protein Negative mg/dL (NEG-TRACE) Urine Glucose (UA) Negative mg/dL (NEG) Urine Ketones (Stick) Trace mg/dL (NEG) Urine Blood Negative (NEG) Urine Nitrite Positive (NEG) Urine Bilirubin Negative (NEG) Urine Urobilinogen Dipstick 4.0 mg/dL (0.2 mg/dL) Urine Leukocyte Esterase Moderate (NEG) Urine RBC 0 /HPF (0-2) Urine WBC 5-10 /HPF (0-4) Urine Squamous Epithelial Cells None /LPF Urine Bacteria 0 /HPF (0-FEW) White Blood Count 5.2 x10^3/uL (4.0-11.0) Red Blood Count 3.98 x10^6/uL (4.30-5.70) Hemoglobin 13.2 g/dL (13.0-17.5) Hematocrit 37.0 % (39.0-53.0) Mean Corpuscular Volume 93 fL (79-100) Mean Corpuscular Hemoglobin 33 pg (25-35) Mean Corpuscular Hemoglobin Concent 36 g/dL (31-37) Red Cell Distribution Width 13.9 % (11.5-14.5) Platelet Count 219 x10^3/uL (140-400) Neutrophils (%) (Auto) 69 % (31-73) Lymphocytes (%) (Auto) 17 % (24-48) Monocytes (%) (Auto) 11 % (0-9) Eosinophils (%) (Auto) 2 % (0-3) Basophils (%) (Auto) 1 % (0-3) Neutrophils # (Auto) 3.6 x10^3uL (1.8-7.7) Lymphocytes # (Auto) 0.9 x10^3/uL (1.0-4.8) Monocytes # (Auto) 0.6 x10^3/uL (0.0-1.1) Eosinophils # (Auto) 0.1 x10^3/uL (0.0-0.7) Basophils # (Auto) 0.0 x10^3/uL (0.0-0.2) Sodium Level 136 mmol/L (136-145) Potassium Level 3.6 mmol/L (3.5-5.1) Chloride Level 101 mmol/L (98-107) Carbon Dioxide Level 23 mmol/L (21-32) Anion Gap 12 (6-14) Blood Urea Nitrogen 7 mg/dL (8-26) Creatinine 1.1 mg/dL (0.7-1.3) Estimated GFR (Cockcroft-Gault) 65.8 BUN/Creatinine Ratio 6 (6-20) Glucose Level 108 mg/dL (70-99) Calcium Level 8.3 mg/dL (8.5-10.1) Total Bilirubin 0.8 mg/dL (0.2-1.0) Aspartate Amino Transf (AST/SGOT) 91 U/L (15-37) Alanine Aminotransferase (ALT/SGPT) 144 U/L (16-63) Alkaline Phosphatase 114 U/L (46-116) Total Protein 6.9 g/dL (6.4-8.2) Albumin 2.8 g/dL (3.4-5.0) Albumin/Globulin Ratio 0.7 (1.0-1.7) Microbiology 05/23/18 Blood Culture - Preliminary, Resulted NO GROWTH AFTER 2 DAYS Medications Current Medications Piperacillin Sod/ Tazobactam Sod 3.375 gm/Sodium Chloride 50 ml @ 100 mls/hr 1X ONCE IV Last administered on 05/23/18at 22:15; Start 05/23/18 at 21:45; Stop 05/23/18 at 22:14; Status DC Acetaminophen (Tylenol) 1,000 mg 1X ONCE PO Last administered on 05/23/18at 22: 00; Start 05/23/18 at 22:00; Stop 9/11/18 at 22:01; Status DC Sodium Chloride 1,000 ml @ 1,000 mls/hr 1X ONCE IV Last administered on at 22:08; Start 05/23/18 at 22:15; Stop 05/23/18 at 23:14; Status DC Ondansetron HCl (Zofran) 4 mg PRN Q8HRS PRN IV NAUSEA/VOMITING; Start 05/23/18 at 23:15; Stop 05/24/18 at 09:01; Status DC Sodium Chloride 1,000 ml @ 100 mls/hr Q10H IV Last administered on 05/24/18at 10:30; Start 05/23/18 at 23:15; Stop 05/24/18 at 10:36; Status DC Albuterol/ Ipratropium (Duoneb) 3 ml RTQID NEB Last administered on 05/25/18at 07:30; Start 05/24/18 at 08:00; Stop 05/25/18 at 07:59; Status DC Ondansetron HCl (Zofran) 4 mg PRN Q6HRS PRN IV NAUSEA/VOMITING; Start 05/24/18 at 09:15 Acetaminophen (Tylenol) 500 mg PRN Q6HRS PRN PO MILD PAIN / TEMP Last administered on 05/26/18at 06:24; Start 05/24/18 at 09:00 Acetaminophen/ Codeine Phosphate (Tylenol #3) 1 tab PRN Q6HRS PRN PO MODERATE - SEVERE PAIN; Start 05/24/18 at 09:00 Benzonatate (Tessalon Perle) 100 mg [id number] PO Last administered on 05/26/18at 09 :12; Start 05/24/18 at 09:30 Guaifenesin (Robitussin Dm) 10 ml PRN Q6HRS PRN PO COUGH; Start 05/24/18 at 09: 00 Aspirin (Children'S Aspirin) 81 mg DAILY PO Last administered on 05/26/18at 09: 12; Start 05/25/18 at 09:30 Diphenhydramine HCl (Benadryl) 25 mg DAILY PO Last administered on 05/26/18at 09 :12; Start 05/24/18 at 09:30 Docusate Sodium (Colace) 100 mg BID PO Last administered on 05/26/18at 09:13; Start 05/24/18 at 09:30 Tamsulosin HCl (Flomax) 0.4 mg DAILY PO Last administered on 05/26/18 09:12; Start 05/24/18 at 09:30 Cetirizine HCl (ZyrTEC) 10 mg DAILY PO Last administered on 05/26/18 09:13; Start 05/24/18 at 09:30 Phenazopyridine HCl (Pyridium) 200 mg TID PO Last administered on 05/25/18 20: 28; Start 05/24/18 at 15:00 Trimethoprim/ Sulfamethoxazole (Bactrim Ds) 1 tab BID PO Last administered on 09:12; Start 05/24/18 at 10:45 Lactobacillus Rhamnosus (Culturelle) 1 cap BID PO Last administered on 09:12; Start 05/24/18 at 21:00 Piperacillin Sod/ Tazobactam Sod (Zosyn Per Pharmacy) 1 each PRN DAILY PRN MC SEE COMMENTS; Start 05/25/18 at 11:30 Piperacillin Sod/ Tazobactam Sod 3.375 gm/Sodium Chloride 50 ml @ 100 mls/hr Q6HRS IV Last administered on 05/26/18 06:12; Start 05/25/18 at 13:00 Polyethylene Glycol (miraLAX PACKET) 17 gm PRN DAILY PRN PO CONSTIPATION Last administered on 05/26/18 09:49; Start 05/25/18 at 17:15 Albuterol Sulfate (Ventolin Neb Soln) 2.5 mg PRN Q4HRS PRN NEB SHORTNESS OF BREATH Last administered on 05/25/18at 18:40; Start 05/25/18 at 18:30 Iohexol (Omnipaque 300 Mg/ml) 75 ml 1X ONCE IV Last administered on 05/26/18at 10:42; Start 05/26/18 at 10:30; Stop 05/26/18 at 10:31; Status DC Info (CONTRAST GIVEN -- Rx MONITORING) 1 each PRN DAILY PRN [facility] SEE COMMENTS; Start 05/26/18 at 10:30; Stop 05/28/18 at 10:29 Active Scripts Active Bactrim 400-80 Mg Tablet (Sulfamethoxazole/Trimethoprim) 1 Each Tablet 1 Tab PO BID 72 Days Reported Benadryl (Diphenhydramine Hcl) 25 Mg Capsule 25 Mg PO DAILY Loratadine 10 Mg Tablet 1 Tab PO DAILY Colace (Docusate Sodium) 100 Mg Capsule 1 Cap PO BID Flomax (Tamsulosin Hcl) 0.4 Mg Cap.er.24h 1 Cap PO DAILY Children's Aspirin (Aspirin) 81 Mg Tab.chew 81 Mg PO DAILY Vitals/I & O Vital Sign - Last 24 Hours 05/25/18 05/25/18 05/25/18 05/25/18 15:00 18:40 19:00 20:00 Temp 100.9 99.7 100.9 99.7 Pulse 95 104 Resp 20 19 B/P (MAP) 115/70 (85) 131/68 (89) Pulse Ox 93 91 91 O2 Delivery Room Air Room Air Room Air Room Air 05/25/18 05/26/18 05/26/18 05/26/18 22:39 03:00 07:57 08:00 Temp 100.8 98.2 97.9 100.8 98.2 97.9 Pulse 100 85 81 Resp 18 18 16 B/P (MAP) 142/75 (97) 121/76 (91) 118/73 (88) Pulse Ox 92 92 94 O2 Delivery Room Air Room Air Room Air Room Air 05/26/18 11:37 Temp 97.5 97.5 Pulse 81 Resp 16 B/P (MAP) 141/69 (93) Pulse Ox 96 O2 Delivery Room Air Intake and Output 05/25/18 05/25/18 05/26/18 15:00 23:00 07:00 Intake Total 480 ml 340 ml 770 ml Output Total 650 ml Balance 480 ml -310 ml 770 ml HÉCTOR ENG MD May 26, 2018 12:31
[2018-05-26 15:28] VITALS: BP 137/76
--- NOTE | 2018-05-26 15:30 | PDOC ---
Infectious Disease Note Vital Sign Vital Signs Vital Signs Date Time Temp Pulse Resp B/P (MAP) Pulse Ox O2 Delivery O2 Flow Rate FiO2 05/26/18 11:37 97.5 81 16 141/69 (93) 96 Room Air 97.5 Labs Lab Laboratory Tests Test 05/26/18 03:10 White Blood Count 5.2 x10^3/uL (4.0-11.0) Red Blood Count 3.98 x10^6/uL (4.30-5.70) Hemoglobin 13.2 g/dL (13.0-17.5) Hematocrit 37.0 % (39.0-53.0) Mean Corpuscular Volume 93 fL (79-100) Mean Corpuscular Hemoglobin 33 pg (25-35) Mean Corpuscular Hemoglobin Concent 36 g/dL (31-37) Red Cell Distribution Width 13.9 % (11.5-14.5) Platelet Count 219 x10^3/uL (140-400) Neutrophils (%) (Auto) 69 % (31-73) Lymphocytes (%) (Auto) 17 % (24-48) Monocytes (%) (Auto) 11 % (0-9) Eosinophils (%) (Auto) 2 % (0-3) Basophils (%) (Auto) 1 % (0-3) Neutrophils # (Auto) 3.6 x10^3uL (1.8-7.7) Lymphocytes # (Auto) 0.9 x10^3/uL (1.0-4.8) Monocytes # (Auto) 0.6 x10^3/uL (0.0-1.1) Eosinophils # (Auto) 0.1 x10^3/uL (0.0-0.7) Basophils # (Auto) 0.0 x10^3/uL (0.0-0.2) Sodium Level 136 mmol/L (136-145) Potassium Level 3.6 mmol/L (3.5-5.1) Chloride Level 101 mmol/L (98-107) Carbon Dioxide Level 23 mmol/L (21-32) Anion Gap 12 (6-14) Blood Urea Nitrogen 7 mg/dL (8-26) Creatinine 1.1 mg/dL (0.7-1.3) Estimated GFR (Cockcroft-Gault) 65.8 BUN/Creatinine Ratio 6 (6-20) Glucose Level 108 mg/dL (70-99) Calcium Level 8.3 mg/dL (8.5-10.1) Total Bilirubin 0.8 mg/dL (0.2-1.0) Aspartate Amino Transf (AST/SGOT) 91 U/L (15-37) Alanine Aminotransferase (ALT/SGPT) 144 U/L (16-63) Alkaline Phosphatase 114 U/L (46-116) Total Protein 6.9 g/dL (6.4-8.2) Albumin 2.8 g/dL (3.4-5.0) Albumin/Globulin Ratio 0.7 (1.0-1.7) Micro Microbiology 05/23/18 Blood Culture - Preliminary, Resulted NO GROWTH AFTER 2 DAYS Objective Assessment UTI with prostatitis ? early pylonephritis Renal calculi Fever Leukocytosis Syncope/seizure Plan Plan of Care zosyn check cultures and adjust supportive care fluids MAYNOR WOLFE MD May 26, 2018 15:30
[2018-05-26 19:00] VITALS: BP 119/70
[2018-05-26 23:00] VITALS: BP 141/74
--- NOTE | 2018-05-26 23:23 | CONS ---
DATE OF CONSULTATION: 05/26/2018 REASON FOR CONSULTATION: Antibiotic management for UTI and prostatitis. HISTORY OF PRESENT ILLNESS: This is a 73-year-old gentleman who evidently at home had a syncopal episode. The patient also "had a seizure-like" activity and after that he vomited once. The patient was brought in. The patient had a white count of 14.6 initially, had an elevated AST and ALT, abnormal urinalysis. The patient did have a lot of burning and frequency with urination and spasms to urinate. The patient has been receiving Zosyn and Bactrim and consult has been requested. The patient's blood culture is negative and urine culture is still pending. The patient says that he was discouraged until yesterday with the pain and Pyridium did not help, but today he is feeling better. The pain has improved significantly. The patient denies any nausea, vomiting, diarrhea, chest pain, shortness of breath, abdominal pain, urinary symptoms or bowel symptoms now. The patient did have a fever of 100.8 yesterday. PAST MEDICAL HISTORY: Positive for 4 episodes of urinary tract infection, "prostatitis." The patient also has prostatic enlargement, hypertension. SOCIAL HISTORY: Negative for smoking, alcohol, illicit drug use. ALLERGIES: LISTED ALLERGIC TO CIPRO. Evidently, it did not help and he had lot of vague side effects like flushing and not feeling well and it did not work he said. CURRENT MEDICATIONS: Reviewed. The patient is on Zosyn and Bactrim. REVIEW OF SYSTEMS: As per HPI, all other systems reviewed are negative. PHYSICAL EXAMINATION: GENERAL: Alert, oriented gentleman, not in distress. VITAL SIGNS: Stable. Afebrile now with a T-max of 100.8. HEENT: Anicteric. NECK: Supple, no JVP, no lymphadenopathy. LUNGS: Clear. HEART: S1, S2 regular. ABDOMEN: Benign. EXTREMITIES: No edema, cyanosis. SKIN: Unremarkable. There is no CVA tenderness. NEUROLOGIC: The patient is neurologically intact. LABORATORY DATA: White count is down to 5.2, hemoglobin 13.2, platelets are normal. BUN and creatinine is normal. Liver function: AST is 91, ALT is 144. Urinalysis showed too numerous to count WBC. The first one and second one is improved to 5-10 wbc's and the culture somehow is still not done. Abdominal and pelvic CT showed small bilateral nonobstructing intrarenal calculi. Small bilateral renal cysts, bilateral perinephric edema, prostatic enlargement. Chest x-ray, mild basilar patchy opacity with atelectasis. CT of the head was unremarkable. IMPRESSION: 1. Urinary tract infection with possible early pyelonephritis. 2. Prostatitis. 3. Fever. 4. Leukocytosis. 5. Renal calculi. 6. Syncope with questionable seizure-like activity. RECOMMENDATIONS: Recommend continue Zosyn, discontinue Bactrim. We will check cultures and adjust. I am checking with the lab why urine culture is still not showing up or not done. Fluids and hopefully soon to be able to change to oral for possible discharge in a day or two. Thank you very much, Dr. Huggins, for giving me the opportunity to participate in this patient's care. MAYNOR WOLFE MD DR: GRISEL/vicenta JOB#: [id number] / [id number]
[2018-05-27 03:00] VITALS: BP 134/74
[2018-05-27 05:55] LABS: BASO % 1 % (0-3); EOS # 0.2 x10^3/uL (0.0-0.7); EOS % 3 % (0-3); HEMATOCRIT 36.6 % (39.0-53.0); HEMOGLOBIN 12.7 g/dL (13.0-17.5); LYMPH # 0.8 x10^3/uL (1.0-4.8); LYMPH % 15 % (24-48); MEAN CORPUSCULAR HEMOGLOBIN 32 pg (25-35); MEAN CORPUSCULAR HGB CONC 35 g/dL (31-37); MEAN CORPUSCULAR VOLUME 93 fL (79-100); MONO # 0.7 x10^3/uL (0.0-1.1); MONO % 14 % (0-9); NEUT # 3.4 x10^3uL (1.8-7.7); NEUT % 67 % (31-73); PLATELET COUNT 231 x10^3/uL (140-400); RED BLOOD COUNT 3.93 x10^6/uL (4.30-5.70); RED CELL DISTRIBUTION WIDTH 13.8 % (11.5-14.5); WHITE BLOOD COUNT 5.1 x10^3/uL (4.0-11.0)
[2018-05-27 06:10] LABS: CALCIUM 8.8 mg/dL (8.5-10.1); CREATININE 0.9 mg/dL (0.7-1.3); GFR 82.9; POTASSIUM 3.7 mmol/L (3.5-5.1)
[2018-05-27] MEDS: PIPERACILLIN/TAZOBACTAM 3.375 GM in IV NORMAL SALINE 50ML 50 ML IV SCH ×2 (06:12→10:54)
[2018-05-27 07:10] VITALS: BP 143/71
[2018-05-27] MEDS: ALBUTEROL SULFATE 2.5 MG/3 ML NEBU. NEB PRN (07:15)
[2018-05-27] MEDS: LACTOBACILLUS RHAMNOSUS GG 1 CAPSULE. PO SCH (08:38)
[2018-05-27] MEDS: TAMSULOSIN 0.4 MG CAP.ER.24H. PO SCH (08:39)
[2018-05-27] MEDS: DOCUSATE SODIUM 100 MG CAPSULE. PO SCH (08:39)
[2018-05-27] MEDS: CETIRIZINE HCL 10 MG TABLET. PO SCH (08:39)
[2018-05-27] MEDS: BENZONATATE 100 MG CAPSULE. PO SCH (08:39)
[2018-05-27] MEDS: ASPIRIN CHEWABLE 81 MG TABLET. PO SCH (08:39)
[2018-05-27] MEDS: diphenhydrAMINE HCL 25 MG CAPSULE PO SCH (08:39)
[2018-05-27] MEDS: SMZ/TMP 800/160MG TABLET. PO SCH (08:40)
--- NOTE | 2018-05-27 09:20 | PDOC ---
PROGRESS NOTE CHIEF COMPLAINT: No acute events. Thinks that he is improving. Denies fevers, chill or other concerns. SUBJECTIVE: ROS: ROS: RESPIRATORY: Shortness of breath denies. Cough denies. UROLOGY: Denies blood in urine. Denies difficulty urinating Problems: Problems Medical Problems: (1) Aspiration pneumonitis Status: Acute (2) Seizure-like activity Status: Acute (3) Sepsis Status: Acute OBJECTIVE: Vital Signs: Vital Signs Date Time Temp Pulse Resp B/P (MAP) Pulse Ox O2 Delivery O2 Flow Rate FiO2 05/27/18 07:15 93 Room Air 05/27/18 07:10 98.3 86 18 143/71 (95) 94 98.3 05/27/18 03:00 98.3 80 20 134/74 (94) 91 98.3 05/26/18 23:00 97.9 90 18 141/74 (96) 94 Room Air 97.9 05/26/18 19:30 Room Air 05/26/18 19:00 97.5 82 18 119/70 (86) 92 Room Air 97.5 05/26/18 15:28 96.3 86 16 137/76 (96) 94 Room Air 96.3 05/26/18 11:37 97.5 81 16 141/69 (93) 96 Room Air 97.5 I & O Intake and Output 05/27/18 07:00 Intake Total 240 ml Balance 240 ml Intake Oral 240 ml # Voids 6 # Bowel Movements 1 PHYSICAL EXAM: Physical Exam: NAD AAO NLB on RA Abd soft, nt, nd Visible skin warm and pink LABS: Leukocytosis has resolved, H/H Plt stable, Cr 0.9 UC from 05/23- E coli, follow-up negative, BC negative IMAGES CT-U reviewed: Simple renal cysts Non-obs stones Enlarged prostate- no fluid collections No ureteral or bladder filling defects ASSESSMENT & PLAN 73 yo M with prostatic hypertrophy admitted with prostatitis and hematuria. Clinically has improved. Abx per ID Hematuria likely from prostate. Will add proscar. Risks and SEs reviewed. Consenting to use. Needs outpatient cystoscopy. Problem List: Problems Medical Problems: (1) Aspiration pneumonitis Status: Acute (2) Seizure-like activity Status: Acute (3) Sepsis Status: Acute ORALIA COKER MD May 27, 2018 09:20
[2018-05-27] MEDS ORDERED: FINASTERIDE 5 MG TABLET. PO SCH (10:30)
[2018-05-27] MEDS ORDERED: PHEN100T82 PO (10:48)
[2018-05-27] MEDS ORDERED: FINA5TAB4 PO (10:48)
--- NOTE | 2018-05-27 10:54 | PDOC3 ---
Discharge Summary Visit Information Date of Admission: May 23, 2018 Date of Discharge: May 27, 2018 Admitting Diagnosis Comment: UTI in a male fevers HEmaturia, gross (05/26) Renal cysts, small bilateral NUmerous non obstructing renal calculi Syncope rule out arrhythmia/cardiac in etiology - 2nd episode History of LBBB History of prostatitis Cipro allergy Dysuria\ Final Diagnosis Problems Medical Problems: (1) Aspiration pneumonitis Status: Acute (2) Seizure-like activity Status: Acute (3) Sepsis Status: Acute Brief Hospital Course Allergies Allergies Coded Allergies Type Severity Reaction Last Updated Verified ciprofloxacin Allergy Intermediate 05/25/18 Yes Vital Signs Vital Signs Date Time Temp Pulse Resp B/P (MAP) Pulse Ox O2 Delivery O2 Flow Rate FiO2 05/27/18 08:00 Room Air 05/27/18 07:15 93 05/27/18 07:10 98.3 86 18 143/71 (95) 98.3 Lab Results Laboratory Tests Test 05/25/18 13:35 05/26/18 03:10 05/27/18 04:25 Urine Collection Type Unknown Urine Color Bland Urine Clarity Clear Urine pH 6.5 Urine Specific [place] 1.015 Urine Protein Negative mg/dL (NEG-TRACE) Urine Glucose (UA) Negative mg/dL (NEG) Urine Ketones (Stick) Trace mg/dL (NEG) Urine Blood Negative (NEG) Urine Nitrite Positive (NEG) Urine Bilirubin Negative (NEG) Urine Urobilinogen Dipstick 4.0 mg/dL (0.2 mg/dL) Urine Leukocyte Esterase Moderate (NEG) Urine RBC 0 /HPF (0-2) Urine WBC 5-10 /HPF (0-4) Urine Squamous Epithelial Cells None /LPF Urine Bacteria 0 /HPF (0-FEW) White Blood Count 5.2 x10^3/uL (4.0-11.0) 5.1 x10^3/uL (4.0-11.0) Red Blood Count 3.98 x10^6/uL (4.30-5.70) 3.93 x10^6/uL (4.30-5.70) Hemoglobin 13.2 g/dL (13.0-17.5) 12.7 g/dL (13.0-17.5) Hematocrit 37.0 % (39.0-53.0) 36.6 % (39.0-53.0) Mean Corpuscular Volume 93 fL (79-100) 93 fL (79-100) Mean Corpuscular Hemoglobin 33 pg (25-35) 32 pg (25-35) Mean Corpuscular Hemoglobin Concent 36 g/dL (31-37) 35 g/dL (31-37) Red Cell Distribution Width 13.9 % (11.5-14.5) 13.8 % (11.5-14.5) Platelet Count 219 x10^3/uL (140-400) 231 x10^3/uL (140-400) Neutrophils (%) (Auto) 69 % (31-73) 67 % (31-73) Lymphocytes (%) (Auto) 17 % (24-48) 15 % (24-48) Monocytes (%) (Auto) 11 % (0-9) 14 % (0-9) Eosinophils (%) (Auto) 2 % (0-3) 3 % (0-3) Basophils (%) (Auto) 1 % (0-3) 1 % (0-3) Neutrophils # (Auto) 3.6 x10^3uL (1.8-7.7) 3.4 x10^3uL (1.8-7.7) Lymphocytes # (Auto) 0.9 x10^3/uL (1.0-4.8) 0.8 x10^3/uL (1.0-4.8) Monocytes # (Auto) 0.6 x10^3/uL (0.0-1.1) 0.7 x10^3/uL (0.0-1.1) Eosinophils # (Auto) 0.1 x10^3/uL (0.0-0.7) 0.2 x10^3/uL (0.0-0.7) Basophils # (Auto) 0.0 x10^3/uL (0.0-0.2) 0.0 x10^3/uL (0.0-0.2) Sodium Level 136 mmol/L (136-145) 134 mmol/L (136-145) Potassium Level 3.6 mmol/L (3.5-5.1) 3.7 mmol/L (3.5-5.1) Chloride Level 101 mmol/L (98-107) 100 mmol/L (98-107) Carbon Dioxide Level 23 mmol/L (21-32) 22 mmol/L (21-32) Anion Gap 12 (6-14) 12 (6-14) Blood Urea Nitrogen 7 mg/dL (8-26) 7 mg/dL (8-26) Creatinine 1.1 mg/dL (0.7-1.3) 0.9 mg/dL (0.7-1.3) Estimated GFR (Cockcroft-Gault) 65.8 82.9 BUN/Creatinine Ratio 6 (6-20) Glucose Level 108 mg/dL (70-99) 103 mg/dL (70-99) Calcium Level 8.3 mg/dL (8.5-10.1) 8.8 mg/dL (8.5-10.1) Total Bilirubin 0.8 mg/dL (0.2-1.0) Aspartate Amino Transf (AST/SGOT) 91 U/L (15-37) Alanine Aminotransferase (ALT/SGPT) 144 U/L (16-63) Alkaline Phosphatase 114 U/L (46-116) Total Protein 6.9 g/dL (6.4-8.2) Albumin 2.8 g/dL (3.4-5.0) Albumin/Globulin Ratio 0.7 (1.0-1.7) Laboratory Tests Test 05/27/18 04:25 White Blood Count 5.1 x10^3/uL (4.0-11.0) Red Blood Count 3.93 x10^6/uL (4.30-5.70) Hemoglobin 12.7 g/dL (13.0-17.5) Hematocrit 36.6 % (39.0-53.0) Mean Corpuscular Volume 93 fL (79-100) Mean Corpuscular Hemoglobin 32 pg (25-35) Mean Corpuscular Hemoglobin Concent 35 g/dL (31-37) Red Cell Distribution Width 13.8 % (11.5-14.5) Platelet Count 231 x10^3/uL (140-400) Neutrophils (%) (Auto) 67 % (31-73) Lymphocytes (%) (Auto) 15 % (24-48) Monocytes (%) (Auto) 14 % (0-9) Eosinophils (%) (Auto) 3 % (0-3) Basophils (%) (Auto) 1 % (0-3) Neutrophils # (Auto) 3.4 x10^3uL (1.8-7.7) Lymphocytes # (Auto) 0.8 x10^3/uL (1.0-4.8) Monocytes # (Auto) 0.7 x10^3/uL (0.0-1.1) Eosinophils # (Auto) 0.2 x10^3/uL (0.0-0.7) Basophils # (Auto) 0.0 x10^3/uL (0.0-0.2) Sodium Level 134 mmol/L (136-145) Potassium Level 3.7 mmol/L (3.5-5.1) Chloride Level 100 mmol/L (98-107) Carbon Dioxide Level 22 mmol/L (21-32) Anion Gap 12 (6-14) Blood Urea Nitrogen 7 mg/dL (8-26) Creatinine 0.9 mg/dL (0.7-1.3) Estimated GFR (Cockcroft-Gault) 82.9 Glucose Level 103 mg/dL (70-99) Calcium Level 8.8 mg/dL (8.5-10.1) Brief Hospital Course * Mr. Jordan is a 73 old [place] male, admitted for UTI with hx prostatitis, was symptomatic with dysuria. Co managed with urology and ID, E coli uti on cx. NO more fevers, SOme minor gross hematuria, small renal cysts, benign appearing on CT, STarted on finasteride by urology, prostate was pressing on bladder wall. I started some pyridium,Pt Does not want cipro, Urology ok with bactrim x 6 weeks, Requested Short term disability - i did not provide,. 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 * Seen and examined, discharge time 31 minutes, greater than 50% DC education counseling, we went through his urine culture, CAT scans, discharge medications one by one. Significant time * * consults ID, urology Procedures performed none Discharge Information Condition at Discharge: Improved, Stable Disposition/Orders: D/C to Home Scheduled Aspirin (Children's Aspirin) 81 Mg Tab.chew, 81 MG PO DAILY, (Reported) Entered as Reported by: SARAH AN on 05/24/18 0131 Last Taken: Unknown Dose on 05/23/18 Last Action: Continued on 05/24/18900 by HÉCTOR ENG Diphenhydramine Hcl (Benadryl) 25 Mg Capsule, 25 MG PO DAILY, (Reported) Entered as Reported by: SARAH AN on 05/24/18130 Last Taken: Unknown Dose on 05/23/18 Last Action: Continued on 05/24/18900 by HÉCTOR ENG Docusate Sodium (Colace) 100 Mg Capsule, 1 CAP PO BID, #30 (Reported) Entered as Reported by: SARAH AN on 05/24/18130 Last Taken: Unknown Dose on 05/23/18 Last Action: Continued on 05/24/18900 by HÉCTOR ENG Finasteride (Finasteride) 5 Mg Tablet, 1 TAB PO DAILY, #30 Ref 11 Prescribed by: HÉCTOR ENG on 05/27/18 1048 Loratadine (Loratadine) 10 Mg Tablet, 1 TAB PO DAILY, #30 Ref 5 (Reported) Entered as Reported by: SARAH AN on 05/24/18130 Last Taken: Unknown Dose on 05/23/18 Last Action: Converted on 05/24/18900 by HÉCTOR ENG Phenazopyridine Hcl (Pyridium) 100 Mg Tablet, 100 MG PO TID for 90 Days, #270 Prescribed by: HÉCTOR ENG on 05/27/18 1048 Sulfamethoxazole/Trimethoprim (Bactrim 400-80 Mg Tablet) 1 Each Tablet, 1 TAB PO BID for 72 Days, #144 Prescribed by: HÉCTOR ENG on 05/25/18900 Tamsulosin Hcl (Flomax) 0.4 Mg Cap.er.24h, 1 CAP PO DAILY, #30 Ref 11 (Reported) Entered as Reported by: SARAH AN on 05/24/18130 Last Taken: Unknown Dose on 05/23/18 Last Action: Continued on 05/24/18900 by HÉCTOR STOVALL MD May 27, 2018 10:54
[2018-05-27 11:00] VITALS: BP 141/73
== END 2018-05-27 12:45 | disposition home or self-care (01) | DRG 871 ==
LOC: ER 21:25 → 5 SOUTH 23:06
PROVIDERS: ADMIT Internal Medicine; ATTEND Internal Medicine
DX: A41.9 Sepsis, unspecified organism (principal); J69.0 Pneumonitis due to inhalation of food and vomit; N39.0 Urinary tract infection, site not specified; J98.11 Atelectasis; N41.9 Inflammatory disease of prostate, unspecified; N40.0 Benign prostatic hyperplasia without lower urinary tract symptoms; I10 Essential (primary) hypertension; F32.9 Major depressive disorder, single episode, unspecified; M19.90 Unspecified osteoarthritis, unspecified site; E86.0 Dehydration; I44.7 Left bundle-branch block, unspecified; R73.9 Hyperglycemia, unspecified; N20.0 Calculus of kidney; B96.20 Unspecified Escherichia coli [E. coli] as the cause of diseases classified elsewhere; N28.1 Cyst of kidney, acquired; R31.0 Gross hematuria; Z88.1 Allergy status to other antibiotic agents; Z82.3 Family history of stroke
CPT/HCPCS: 36415; 70450; 71045; 74178; 80048; 80053; 80061; 80076; 81001; 83036; 83605; 83735; 84145; 84443; 85007; 85025; 87040; 87086; 87186; 93005; 93306; 94640; 94760; 96365; G0238; J2543; J7030; J7613; J7620; Q0163; Q9967; 99285-25